=== PATIENT | female | born 1995 | race Caucasian/White ===

== ENCOUNTER 2016-12-04 21:26 | Emergency (ER) | payer OTHER ==
[2016-12-04 22:33] LABS: BILIRUBIN,URINE NEGATIVE (NEGATIVE)
[2016-12-04 22:35] LABS: UA CHARGE (STRIP ONLY) YES; UR CULTURE IF IND NOT INDICATED
--- NOTE | 2016-12-04 22:56 | ED Physician Documentation ---
PD HPI FEMALE - Stated complaint Stated Complaint: 14 WEEKS/SPOTTING - Chief complaint Chief Complaint: Abd Pain - History obtained from History obtained from: Patient - History of Present Illness Timing - onset: How many days ago (6) Timing - duration: Days (6) Timing - details: Still present Associated symptoms: Vaginal bleeding, Dysuria, Urinary frequency. No: Fever, Vaginal discharge Contributing factors: (14 weeks ) OB-LABOR ECONOMIST History: G (3), P (1), Miscarriage(s) (1), Prior vag delivery (1) Similar symptoms before: Diagnosis (similar symptoms with previous UTIs) Recently seen: Not recently seen - Additional information Additional information: patient is 14 weeks , moved to [facility] yesterday and thus does not have any local primary care physicians. She has had three ultrasound studies in this already (prior to moving here), and patient says these showed normal intrauterine . C/O 6 days of urinary frequency, burning with urination, and sensation of incomplete voiding. Also c/o small amt. vag. bleeding x 1-2 days Review of Systems Constitutional: denies: Fever, Chills, Sweats GI: denies: Abdominal Pain, Nausea, Vomiting : reports: Dysuria, Frequency, Now EGA PD PAST MEDICAL HISTORY - Past Medical History Past Medical History: No - Past Surgical History Past Surgical History: Yes General: Appendectomy Ortho: Other - Present Medications Home Medications: Ambulatory Orders Medication Instructions Recorded Confirmed Nitrofurantoin [Macrobid] 100 mg PO BID #9 capsule 12/04/16 - Allergies Allergies/Adverse Reactions: Allergies Allergy/AdvReac Type Severity Reaction Status Date / Time metoclopramide HCl * Allergy Unknown Verified 12/04/16 23:27 [From Reglan] - Social History Does the pt smoke?: No Smoking Status: Never smoker Does the pt drink ETOH?: No Does the pt have substance abuse?: No - Immunizations Immunizations are current?: Yes - POLST Patient has POLST: No PD ED PE NORMAL - Vitals Vital signs reviewed: Yes - General General: Alert and oriented X 3, No acute distress, Well developed/nourished - Cardiac Cardiac: RRR, No murmur - Respiratory Respiratory: No respiratory distress, Clear bilaterally - Abdomen Abdomen: Soft, Non tender - Back Back: No CVA TTP Results - Vitals Vitals: Vital Signs - 24 hr 12/04/16 12/04/16 12/04/16 21:37 23:25 23:43 Temperature 36.3 C L 36.2 C L Heart Rate 83 60 60 Respiratory 17 18 17 Rate Blood Pressure 119/68 100/53 L 109/48 L O2 Saturation 100 99 99 Oxygen O2 Source Room air - Labs Labs: Laboratory Tests 12/04/16 22:00 Urine Color YELLOW Urine Clarity CLEAR Urine pH 7.0 Ur Specific Carman 1.015 Urine Protein NEGATIVE Urine Glucose (UA) NEGATIVE Urine Ketones NEGATIVE Urine Occult Blood NEGATIVE Urine Nitrite NEGATIVE Urine Bilirubin NEGATIVE Urine Urobilinogen 0.2 (NORMAL) Ur Leukocyte Esterase NEGATIVE Ur Microscopic Review NOT INDICATED Urine Culture Comments NOT INDICATED PD MEDICAL DECISION MAKING - ED course Complexity details: reviewed results, considered differential, d/w patient Departure - Departure Disposition: 01 Home, Self Care Clinical Impression: Urinary tract infection Condition: Good Instructions: ED UTI Cystitis Female Follow-Up: Ab Barnhart MD [Provider Admit Priv/Credential] - (3-5 days) Prescriptions: Nitrofurantoin [Macrobid] 100 mg PO BID #9 capsule Discharge Date/Time: 12/04/16 23:55
[2016-12-04] MEDS ORDERED: NITROFURANTOIN MACRO 100 MG CAPSULE PO STA (23:12)
[2016-12-04] MEDS ORDERED: ACETAMINOPHEN 325 MG TABLET PO STA (23:13)
[2016-12-04] MEDS ORDERED: ACETAMINOPHEN 325 MG TABLET PO ONE (23:40)
[2016-12-04] MEDS ORDERED: NITROFURANTOIN MACRO 100 MG CAPSULE PO ONE (23:40)
[2016-12-04 23:44] VITALS: BP 109/48
== END 2016-12-04 23:55 | disposition home or self-care (01) ==
LOC: ED 21:26
DX: O23.41 Unspecified infection of urinary tract in pregnancy, first trimester (principal); Z3A.14 14 weeks gestation of pregnancy
CPT/HCPCS: 81003; 99283; A9270; 81001; 87086

== ENCOUNTER 2017-01-04 06:36 | Outpatient (CLI) | payer OTHER | END 2017-01-04 06:37 | disposition home or self-care (01) | LOC: LAB.R 06:36 | PROVIDERS: ATTEND Obstetrics & Gynecology | DX: N89.8 Other specified noninflammatory disorders of vagina (principal) | CPT/HCPCS: 87480; 87510; 87660 ==

== ENCOUNTER 2017-02-01 12:10 | Outpatient (CLI) | payer BC ==
[2017-02-01 12:24] VITALS: BP 117/63
== END 2017-02-01 13:13 | disposition home or self-care (01) ==
LOC: WFO 12:10 → OB 12:19 → WFO 13:13
PROVIDERS: ATTEND Obstetrics & Gynecology
DX: O36.8120 Decreased fetal movements, second trimester, not applicable or unspecified (principal); Z3A.22 22 weeks gestation of pregnancy
CPT/HCPCS: 99211

== ENCOUNTER 2017-02-11 13:04 | Outpatient (CLI) | payer BC ==
[2017-02-11 14:19] LABS: BASOPHILS % (AUTO) 0.3 %; EOSINOPHILS # (AUTO) 0.1 10^3/uL (0.0-0.7); EOSINOPHILS % (AUTO) 0.9 %; HCT - HEMATOCRIT 35.3 % (37.0-47.0); LYMPHOCYTES # (AUTO) 1.8 10^3/uL (1.5-3.5); LYMPHOCYTES % (AUTO) 15.9 %; MEAN CORPUSCULAR HEMOGLOBIN 30.9 pg (27.0-31.0); MEAN CORPUSCULAR HGB CONC 34.1 g/dL (32.0-36.0); MEAN CORPUSCULAR VOLUME 90.7 fL (81.0-99.0); MEAN PLATELET VOLUME 7.8 fL (7.9-10.8); MONOCYTES # (AUTO) 0.8 10^3/uL (0.0-1.0); MONOCYTES % (AUTO) 6.9 %; NEUTROPHILS # (AUTO) 8.5 10^3/uL (1.5-6.6); RED BLOOD COUNT 3.89 10^6/uL (4.20-5.40); RED CELL DISTRIBUTION WIDTH 13.8 % (12.0-15.0); UNCORRECTED WHITE BLOOD COUNT 11.2 x10^3/uL; WHITE BLOOD COUNT 11.2 x10^3/uL (4.8-10.8)
[2017-02-11 14:53] LABS: BILIRUBIN,URINE NEGATIVE (NEGATIVE)
[2017-02-11 14:54] LABS: UA CHARGE (STRIP ONLY) YES; UR CULTURE IF IND NOT INDICATED
--- NOTE | 2017-02-11 17:36 | Ultrasound Preliminary Report ---
Exam: US OB Limited Impression: 1. Posterior placenta without gross prevertebral. 2. Normal closed cervix. 3. Single intrauterine in a breech position. No gross anatomic abnormality. heart rat e 142 bpm. Synechia noted in the right upper quadrant. Final interpretation by on-site radiologist in the morning. SITE ID: [id number]
[2017-02-11 19:21] VITALS: BP 127/65
--- NOTE | 2017-02-12 13:01 | Ultrasound Report ---
EXAM: THIRD TRIMESTER OBSTETRIC ULTRASOUND EXAM DATE: 02/11/2017 04:19 p.m. CLINICAL HISTORY: Assessment of status. LMP 08/28/2016. COMPARISON: None. TECHNIQUE: Real-time scanning performed with static images. Both color-flow and Doppler technology we re utilized. FINDINGS: Fetus: Single live intrauterine gestation. Presentation: Breech Heart Rate: 148 beats per minute. Placenta: Posterior fundal position. No placenta previa or abruption. Amniotic Fluid Index (FREDDY): 15 cm (normal 8-25). Biometry: Bi-parietal diameter (BPD): 5.7 cm = 23 weeks 3 days. Head circumference (HC): 21.7 cm = 23 weeks 6 days. Abdominal circumference (AC): 18.5 cm = 23 weeks 3 days. Femur length (FL): 4.1 cm = 23 weeks 3 days. Dates: Composite gestational age (this exam): 23 weeks 5 days (EDC 06/05/2017). Gestational age (based on LMP): 23 weeks 6 days (EDC 06/04/2017). Estimated weight: 595 gm, 37 percentile. Anatomic Survey: A complete survey was not performed on this exam. Anatomic evaluation was limited secondary to the age, but demonstrates no definite abnormalities. Maternal Structures: Cervix: Long and closed measuring 4.6 cm. Uterus/adnexa: Unremarkable. Kidneys: No hydronephrosis. Free fluid: None. Other: Please also note that there is an amniotic band in the fundus, fetus is separate. IMPRESSION: 1. Single live intrauterine gestation with normal interval growth concordant with the established EDC of 06/04/2017. 2. Normal FREDDY, umbilical Doppler and placenta. Please also note there is a small thin amnionic band i n the fundus, fetus is separate. [facility] Referring Provider Line: [phone] SITE ID: [id number]
== END 2017-02-11 19:15 | disposition home or self-care (01) ==
LOC: FBP 13:04 → WFO 13:04
PROVIDERS: ATTEND Obstetrics & Gynecology
DX: O47.02 False labor before 37 completed weeks of gestation, second trimester (principal); Z3A.23 23 weeks gestation of pregnancy
CPT/HCPCS: 36415; 76815; 80306; 81001; 81003; 85025; 86762; 86780; 86900; 86901; 87086; 87340; 87389; 87491; 87591; 99214

== ENCOUNTER 2017-02-14 11:54 | Outpatient (CLI) | payer BC ==
[2017-02-14 12:16] VITALS: BP 119/63
== END 2017-02-14 12:53 | disposition home or self-care (01) ==
LOC: WFO 11:54 → FBP 11:55 → WFO 12:53
PROVIDERS: ATTEND Obstetrics & Gynecology
DX: O26.892 Other specified pregnancy related conditions, second trimester (principal); M79.1 Myalgia; Z3A.24 24 weeks gestation of pregnancy
CPT/HCPCS: 82731; 99213

== ENCOUNTER 2017-02-14 11:58 | Outpatient (CLI) | payer BC | END 2017-02-14 11:59 | disposition home or self-care (01) | LOC: LAB.R 11:58 | PROVIDERS: ATTEND Obstetrics & Gynecology | DX: Z36 Encounter for antenatal screening of mother (principal) | CPT/HCPCS: 82731 ==

== ENCOUNTER 2017-02-19 07:32 | Outpatient (CLI) | payer BC ==
--- NOTE | 2017-02-19 10:03 | Ultrasound Report ---
OB ULTRASOUND: 02/19/2017 CLINICAL INDICATION: anatomy. TECHNIQUE: Real-time scanning was performed with hotel services sales representative static images obtained. LAST MENSTRUAL PERIOD 08/29/2016 Clinical Age 24 weeks 6 days US Age 24 weeks 4 days EFW Hadlock 690 g EFW% Hadlock 22% Heart Rate 140 bpm EDC 06/05/2017 US EDC 06/07/2017 BPD Hadlock 24 weeks 5 days; Mean mm 60.8 HC Hadlock 25 weeks 1 day; Mean mm 230.8 AC Hadlock 24 weeks 2 days; Mean mm 196.0 FL Hadlock 24 weeks 2 days; Mean mm 43.5 Presentation cephalic Placental Location posterior Cervical Length 3.7 cm Amniotic Fluid 13.1 cm FINDINGS: There is a single viable intrauterine gestation, in cephalic presentation. heart rate is 140 BPM. The placenta is posterior, without evidence of previa. Amniotic fluid volume is normal, with an FREDDY of 13.1. By size, the fetus measures 24.6 weeks (25.1 weeks by LMP). The following anatomic structures were visualized and appear normal: The intracranial contents, including the ventricles and posterior fossa; the lips and orbits; the spine; the heart, including 4 chamber view and outflow tracts, and diaphragm; the abdominal contents, including the stomach, the bilateral kidneys, and urinary bladder, as well as a normal 3 vessel cord insertion; 4 limbs. Incidental note is again made of a small amniotic band in the fundal portion of the gestational sac. No free fluid or adnexal lesion is seen. IMPRESSION: SINGLE VIABLE INTRAUTERINE GESTATION, WITH SIZE IN KEEPING WITH LMP DATING. NORMAL ANATOMIC SURVEY. SMALL FUNDAL AMNIOTIC BAND, UNCHANGED. MTDD
== END 2017-02-19 07:33 | disposition home or self-care (01) ==
LOC: DI 07:32
PROVIDERS: ATTEND Obstetrics & Gynecology
DX: Z34.82 Encounter for supervision of other normal pregnancy, second trimester (principal)
CPT/HCPCS: 76811

== ENCOUNTER 2017-02-26 14:21 | Outpatient (CLI) | payer BC ==
[2017-02-26 15:02] VITALS: BP 116/65
[2017-02-26 15:42] LABS: BILIRUBIN,URINE NEGATIVE (NEGATIVE)
[2017-02-26 15:51] LABS: UR CULTURE IF IND NOT INDICATED
== END 2017-02-26 17:40 | disposition home or self-care (01) ==
LOC: WFO 14:21 → FBP 14:22 → WFO 17:40
PROVIDERS: ATTEND Obstetrics & Gynecology
DX: Z34.82 Encounter for supervision of other normal pregnancy, second trimester (principal)
CPT/HCPCS: 81001; 82731; 87086; 99213

== ENCOUNTER 2017-03-04 12:46 | Outpatient (CLI) | payer BC ==
[2017-03-04] MEDS ORDERED: TERBUTALINE 1 MG/ML VIAL SUBQ ONE ×2 (13:06→13:07)
[2017-03-04] MEDS ORDERED: NIFEdipine ER 30 MG TABLET PO SCH (14:00)
[2017-03-04 15:36] VITALS: BP 112/66
== END 2017-03-04 15:45 | disposition home or self-care (01) ==
LOC: WFO 12:46 → FBP 12:47 → WFO 15:45
PROVIDERS: ATTEND Obstetrics & Gynecology
DX: O47.02 False labor before 37 completed weeks of gestation, second trimester (principal); Z3A.26 26 weeks gestation of pregnancy
CPT/HCPCS: 96372; 99213; A9270

== ENCOUNTER 2017-03-10 18:23 | Outpatient (CLI) | payer BC ==
[2017-03-10 19:20] LABS: BILIRUBIN,URINE NEGATIVE (NEGATIVE)
[2017-03-10] MEDS ORDERED: TERBUTALINE 1 MG/ML VIAL SUBQ ONE (19:20)
[2017-03-10 19:31] LABS: UR CULTURE IF IND NOT INDICATED; WBC,URINE 0-3 /HPF (0-5)
[2017-03-10] MEDS ORDERED: TERBUTALINE 1 MG/ML VIAL SUBQ SCH (20:00)
[2017-03-10] MEDS ORDERED: NIFEdipine ER 30 MG TABLET PO SCH (20:05)
[2017-03-10 20:47] VITALS: BP 132/75
== END 2017-03-10 21:04 | disposition home or self-care (01) ==
LOC: WFO 18:23 → FBP 18:25 → WFO 21:04
PROVIDERS: ATTEND Obstetrics & Gynecology
DX: O99.89 Other specified diseases and conditions complicating pregnancy, childbirth and the puerperium (principal); R10.9 Unspecified abdominal pain; Z3A.26 26 weeks gestation of pregnancy
CPT/HCPCS: 80306; 81001; 82731; 96372; 99213; A9270; 87086

== ENCOUNTER 2017-03-12 10:34 | Outpatient (CLI) | payer BC | END 2017-03-12 10:35 | disposition home or self-care (01) | LOC: LAB 10:34 | PROVIDERS: ATTEND Obstetrics & Gynecology | DX: Z36 Encounter for antenatal screening of mother (principal) | CPT/HCPCS: 36415; 82950 ==

== ENCOUNTER 2017-03-26 08:00 | Outpatient (CLI) | payer BC | END 2017-03-26 08:01 | disposition home or self-care (01) | LOC: LAB.R 08:00 | PROVIDERS: ATTEND Obstetrics & Gynecology | DX: O60.00 Preterm labor without delivery, unspecified trimester (principal) | CPT/HCPCS: 82731 ==

== ENCOUNTER 2017-04-03 20:30 | Outpatient (CLI) | payer BC ==
[2017-04-03] MEDS ORDERED: NIFEdipine 10 MG CAPSULE PO SCH (21:53)
[2017-04-03 22:05] LABS: BILIRUBIN,URINE NEGATIVE (NEGATIVE)
[2017-04-03 22:09] LABS: UA CHARGE (STRIP ONLY) YES; UR CULTURE IF IND NOT INDICATED
[2017-04-03] MEDS ORDERED: NIFEdipine 10 MG CAPSULE PO ONE (22:39)
[2017-04-03 23:04] VITALS: BP 132/63
== END 2017-04-03 23:00 | disposition home or self-care (01) ==
LOC: WFO 20:30 → FBP 20:32 → WFO 23:00
PROVIDERS: ATTEND Obstetrics & Gynecology
DX: O60.03 Preterm labor without delivery, third trimester (principal); Z3A.30 30 weeks gestation of pregnancy
CPT/HCPCS: 81003; 82731; 87081; 87797; 99214; A9270; 81001; 87086

== ENCOUNTER 2017-04-07 18:57 | Observation (INO) | payer BC ==
[2017-04-07] MEDS ORDERED: LACTATED RINGERS 1,000 ML IV ONE ×2 (19:40→19:49)
[2017-04-07] MEDS ORDERED: TERBUTALINE 1 MG/ML VIAL SUBQ ONE ×2 (19:42→19:48)
[2017-04-07] MEDS ORDERED: BETAMETHASONE 30 MG/5 ML VIAL IM SCH (20:20)
[2017-04-07] MEDS ORDERED: LACTATED RINGERS 1,000 ML IV SCH ×2 (20:27→21:30)
[2017-04-07] MEDS ORDERED: TERBUTALINE 1 MG/ML VIAL SUBQ SCH (20:29)
[2017-04-07] MEDS ORDERED: NIFEdipine 10 MG CAPSULE PO PRN (21:31)
[2017-04-07 21:52] VITALS: BP 113/59
[2017-04-07 21:52] LABS: HCT - HEMATOCRIT 33.4 % (37.0-47.0); HGB - HEMOGLOBIN 11.3 g/dL (12.0-16.0); MEAN CORPUSCULAR HEMOGLOBIN 30.2 pg (27.0-31.0); MEAN CORPUSCULAR HGB CONC 33.9 g/dL (32.0-36.0); MEAN CORPUSCULAR VOLUME 89.1 fL (81.0-99.0); MEAN PLATELET VOLUME 8.3 fL (7.9-10.8); RED BLOOD COUNT 3.75 10^6/uL (4.20-5.40); RED CELL DISTRIBUTION WIDTH 13.5 % (12.0-15.0); WHITE BLOOD COUNT 10.8 x10^3/uL (4.8-10.8)
[2017-04-07 22:04] LABS: ALBUMIN/GLOBULIN RATIO 0.8 (1.0-2.2); BILIRUBIN,TOTAL 0.4 mg/dL (0.2-1.0); CALCIUM 8.9 mg/dL (8.5-10.3); CREATININE 0.4 mg/dL (0.4-1.0); POTASSIUM 3.8 mmol/L (3.5-5.0); TOTAL PROTEIN 6.8 g/dL (6.7-8.2)
[2017-04-07] MEDS ORDERED: MORPHINE 10 MG/ML VIAL IM STA (22:39)
[2017-04-07 22:48] LABS: BILIRUBIN,URINE NEGATIVE (NEGATIVE)
[2017-04-07 23:07] LABS: WBC,URINE 0-3 /HPF (0-5)
[2017-04-07 23:08] LABS: UR CULTURE IF IND NOT INDICATED
[2017-04-07] MEDS ORDERED: PROMETHAZINE 25 MG/1 ML VIAL IM SCH (23:45)
--- NOTE | 2017-04-08 00:03 | Ultrasound Preliminary Report ---
Exam: US OB Transvaginal IMPRESSION: 1. Cervical length 3.1 cm on endovaginal images. [facility] SITE ID: [id number]
--- NOTE | 2017-04-08 00:06 | Ultrasound Report ---
EXAM: US OB TRANSVAGINAL EXAM DATE: 04/07/2017 11:43 PM. CLINICAL HISTORY: Follow-up for cervical length. COMPARISON: 04/07/2017, 2033 hrs.. TECHNIQUE: Real time scanning with static images obtained. Transvaginal exam was performed. FINDINGS: Cervix appears long and closed on endovaginal images, measuring 3.1 cm. See earlier US OB limited for additional findings. IMPRESSION: 1. Cervical length 3.1 cm on endovaginal images. [facility] Referring Provider Line: [phone] SITE ID: [id number]
[2017-04-08] MEDS ORDERED: PROMETHAZINE 25 MG/1 ML VIAL ONE (00:29)
--- NOTE | 2017-04-08 00:52 | Ultrasound Preliminary Report ---
Exam: US OB Limited IMPRESSION: 1. Carbone live intrauterine with gestational age 30 weeks 5 days based on LMP. 2. Estimated weight is within expected limits for assigned dating. 3. Cervix not well seen on transabdominal images. [facility] SITE ID: [id number]
--- NOTE | 2017-04-08 00:55 | Ultrasound Report ---
EXAM: LIMITED OBSTETRICAL ULTRASOUND EXAM DATE: 04/07/2017 09:15 PM. CLINICAL HISTORY: contractions. COMPARISON: None. TECHNIQUE: Real-time sonographic evaluation of the fetus performed by the baggage porter head. Multiple repre sentative static images were saved for review. DATING: Established EGA 30 weeks 5 days with RUPERT 06/11/2017 based on LMP. GENERAL EVALUATION Carbone . Cardiac activity: 146 bpm. movement: Visualized. Presentation: Cephalic. Placenta: Posterior left lateral position. No evidence for previa. Amniotic fluid: Subjectively normal. MVP 5.2 cm. BIOMETRY Bi-Parietal Diameter (BPD): 8.0 cm, 32 weeks 2 days Head Circumference (HC): 27.9 cm, 30 weeks 4 days Abdominal Circumference (AC): 26.1 cm, 30 weeks 1 day Femur Length (FL): 5.6 cm, 29 weeks 2 days Estimated Weight: 1507 gm, 38.8 percentile. MATERNAL STRUCTURES Cervix: Not well seen due to head position. IMPRESSION: 1. Carbone live intrauterine with gestational age 30 weeks 5 days based on LMP. 2. Estimated weight is within expected limits for assigned dating. 3. Cervix not well seen on transabdominal images. [facility] Referring Provider Line: [phone] SITE ID: [id number]
--- NOTE | 2017-04-08 02:05 | HISTORY & PHYSICAL EXAMINATION ---
DATE OF ADMISSION: 04/07/2017 DIAGNOSES: 1. contractions. 2. Thirty weeks and 6 days gestation by early ultrasound. 3. Procardia labor prophylaxis. 4. Vaginal discharge. The patient is a 21-year-old 3, para P1-0-1-1 woman at 30 weeks 6 days gestation who has had multiple visits to labor and delivery to rule out labor due to frequent flurries of contractions. She has had serial fibronectin tests, which have all been negative except for her sample was positive. She reports contractions on and off for the last 7 weeks. Over the last 12 hours, she notes that they have become more frequent and stronger. She is taking her nifedipine 10 mg every 6 hours as instructed and pushing fluids. She reports no dysuria, frequency, urgency or hematuria. She states that her pelvis feels different. She denies josefa pressure or grossly ruptured membranes. She reports several days of a yellowish white, creamy discharge. At one time this discharge was more watery. She has no fevers or chills and is not sexually active. Most recently recorded vaginal exam did not have dilation but found the head high and 20% effaced. Today's cervical exam is 1 cm and 30-40% effaced with soft consistency anterior and -2. Reviewing ultrasound data, initial ultrasound at 23.7 weeks found the cervical length to be 4.66. Repeat studying on 2016 (24.9 weeks) found the cervix to be 3.7 cm. OBSTETRICAL HISTORY: Most recently the patient had a spontaneous and immediately became again. Her working EDC is 11 June based on ultrasound. [facility]. BASELINE LABORATORY DATA TESTING: Hemoglobin 12.0, white count 11.2, platelets 260, rubella immune, B positive, antibody screen negative, urine culture negative, RPR negative, GC and chlamydia negative, hepatitis B surface antibody negative. HIV negative. Pap smear: ASCUS with negative high risk HPV. Initial anomaly scan showed a possibility of amniotic band; however, MFM reevaluation found no band. PAST MEDICAL HISTORY: The patient denies chronic disease history. PAST SURGICAL HISTORY: Left ACL repair. ALLERGIES: ERYTHROMYCIN, RASH AND BLISTERS. MEDICATIONS: vitamins, Procardia 10 mg every 6 hours - last dose at 5 p.m. SOCIAL HISTORY: Denies drug, tobacco or alcohol use. REVIEW OF SYSTEMS: CONSTITUTIONAL: Negative. HEENT: Negative. LUNGS: Negative. CARDIOVASCULAR: Negative. GASTROINTESTINAL: Negative other than heartburn which she takes ranitidine for. GENITOURINARY: Negative, Reference HPI. MUSCULOSKELETAL: The patient states left knee is not as functional as it could be. NEUROLOGIC: The patient reports occasional mild headache. SKIN: Negative. LYMPHATIC: Negative. PHYSICAL EXAMINATION: GENERAL: Laying quietly on the stretcher with mother in attendance. Afebrile, normotensive. HEENT: Supple neck. No thyromegaly. EOMI. No icterus. Dentition repaired. Somewhat dry mucous membranes. LUNGS: Clear to auscultation. CARDIAC: Regular, no murmur, no gallop. ABDOMEN: Nondistended. No abdominal organomegaly. No tenderness. No flank tenderness. No bladder tenderness. Uterus appropriate size for 31 weeks, normal resting tone, occasional mild to moderate contraction. heart monitor baseline stable 125/130, moderate variability, accels no decels. Tocodynamometer finds contractions every 5-6 minutes. EXTERNAL GENITALIA: No lesions. VAGINA: Speculum exam, no blood. Creamy yellowish discharge, fern negative, GC, chlamydia, GBS and a fern sent. CERVIX: Consistency soft, approximately 1 cm dilation, 30% to at most 40% effaced, anterior; no leakage of fluid on cough or strain. EXTREMITIES: Arthroscopic surgery scars left knee. No edema. Moves all 4 extremities well. NEUROLOGICAL: Cranial nerves grossly intact, sensory and motor function grossly intact. PSYCHOLOGIC: Anxiety. Effect somewhat flat at times. LABS: CBC pending. Comprehensive metabolic panel and UA pending. Ultrasound, present for exam, parisi vertex fetus with adequate amniotic fluid. weight 1500 grams consistent with 38%. Multiple measurements made of the cervix and length at 2.4-2.6 cm. ASSESSMENT: The patient is a 30 week 6 day gestation who has been plagued with multiple bouts of contractions without evidence of labor. Cervical change has not been established. The shortening of the US cervical length after 28 weeks is normal. Cervical length being under 2.5 is irrelevant in terms of progesterone prophylaxis because our measurements today are outside the 20-24w detection envelope. Cervical lengths between 30 mm and 20 mm at 31w gestational age are indeterminate. If the cervical length was under 20 mm we would take a very aggressive approach. Regardless, we will manage her contractions with caution. PLAN: 1. Betamethasone 25 mg in divided doses over 24 hours. 2. Rest. 3. Continue IV hydration. 4. Procardia 10 mg every 6 hours. 5. The patient has already been given 1 injection of terbutaline 0.25 subcutaneously. Await laboratory data. 6. Maintain close observation for evidence of significant contractions and possible cervical change. ADDENDUM: Radiologist requested TUS cervical measurement and the repeat length was in excess of 30 mm. Therefore delivery is unlikely and patient given reassurance. Patient desired discharge to rest at home. PTL precautions reviewed and she was discharged. FU on Saturday for 2nd Betamethasone. JOB #: [id number] EXT JOB #:[id number] MTDJayme
[2017-04-08] MEDS ORDERED: BETAMETHASONE 30 MG/5 ML VIAL IM SCH (20:21)
== END 2017-04-08 00:36 | disposition home or self-care (01) ==
LOC: WFO 18:57 → FBP 18:59 → WFO 22:00 → FBP 22:01
PROVIDERS: ADMIT Obstetrics & Gynecology; ATTEND Obstetrics & Gynecology
DX: O47.03 False labor before 37 completed weeks of gestation, third trimester (principal); Z3A.30 30 weeks gestation of pregnancy; O99.89 Other specified diseases and conditions complicating pregnancy, childbirth and the puerperium; N89.8 Other specified noninflammatory disorders of vagina
CPT/HCPCS: 76815; 76817; 80053; 81001; 85027; 87081; 87480; 87491; 87510; 87591; 87660; 96360; 96361; 96372; 99214; 99218; A9270; J7120; 76816; 87086

== ENCOUNTER 2017-04-08 19:54 | Outpatient (CLI) | payer BC ==
[2017-04-08] MEDS ORDERED: BETAMETHASONE 30 MG/5 ML VIAL IM SCH (20:15)
== END 2017-04-08 20:28 | disposition home or self-care (01) ==
LOC: WFO 19:54 → FBP 20:07 → WFO 20:28
PROVIDERS: ATTEND Obstetrics & Gynecology
DX: O47.03 False labor before 37 completed weeks of gestation, third trimester (principal); Z3A.30 30 weeks gestation of pregnancy
CPT/HCPCS: 96372

== ENCOUNTER 2017-04-09 23:15 | Observation (INO) | payer BC ==
[2017-04-10] MEDS ORDERED: MAGNESIUM SULFATE 2 GRAM 100 ML IV ONE (00:06)
[2017-04-10] MEDS ORDERED: SODIUM CHLORIDE FLUSH 0.9% 10 ML SYRINGE IVP ONE (00:06)
[2017-04-10] MEDS ORDERED: LACTATED RINGERS 1,000 ML IV ONE (00:06)
[2017-04-10] MEDS ORDERED: MAGNESIUM SULFATE 2 GRAM 50 ML IV SCH (01:05)
[2017-04-10] MEDS ORDERED: MAGNESIUM SULFATE 40 GM in LACTATED RINGERS 420 ML IV SCH ×2 (01:05→10:57)
[2017-04-10] MEDS ORDERED: LACTATED RINGERS 500 ML IV ONE (01:22)
[2017-04-10] MEDS ORDERED: CALCIUM GLUCONATE 1000 MG/10 ML VIAL ONE (01:23)
[2017-04-10] MEDS ORDERED: ONDANSETRON 4 MG/2 ML VIAL ONE (01:28)
[2017-04-10 01:29] LABS: BASOPHILS % (AUTO) 0.1 %; EOSINOPHILS % (AUTO) 0.1 %; HGB - HEMOGLOBIN 10.6 g/dL (12.0-16.0); LYMPHOCYTES # (AUTO) 1.8 10^3/uL (1.5-3.5); LYMPHOCYTES % (AUTO) 15.2 %; MEAN CORPUSCULAR HGB CONC 35.1 g/dL (32.0-36.0); MEAN CORPUSCULAR VOLUME 88.3 fL (81.0-99.0); MEAN PLATELET VOLUME 8.1 fL (7.9-10.8); MONOCYTES % (AUTO) 8.6 %; NEUTROPHILS # (AUTO) 8.8 10^3/uL (1.5-6.6); RED CELL DISTRIBUTION WIDTH 13.4 % (12.0-15.0); UNCORRECTED WHITE BLOOD COUNT 11.6 x10^3/uL; WHITE BLOOD COUNT 11.6 x10^3/uL (4.8-10.8)
[2017-04-10] MEDS ORDERED: ONDANSETRON 4 MG/2 ML VIAL IVP PRN (01:32)
--- NOTE | 2017-04-10 01:49 | PREOP HISTORY & PHYSICAL ---
DATE OF ADMISSION/SURGERY: 04/10/2017 IDENTIFICATION: A 21-year-old, G3, P1, AB1 female whose EDC was 11 June. This makes her 31.1 weeks. This has been very difficult to get her records from [place], [place] where she had her early OB care. CHIEF COMPLAINT: Cramping and vaginal pain. HISTORY OF PRESENT ILLNESS: The patient had been having difficulty with cramping and vaginal pain for the last 7 weeks. She has had 13 visits to Labor and Delivery because of this. She received steroids Saturday and Saturday. She has been on Procardia 60 mg SR and changed to 10 mg p.o. q.4h. Last Saturday, she had a positive FFN. This p.m. this evening at roughly 1600 she developed painful contractions. She also complains of vaginal discomfort. She states she took her Procardia. She also tried hydration as well as trying to get comfortable. She denies any spontaneous rupture of membranes. She notes adequate motion. She has previously had a delivery at 39 weeks, but only had 2 episodes contractions. She is GBS positive on culture. PAST MEDICAL HISTORY: The patient denies any hypertensive, diabetic, cardiac, or pulmonary disease. SURGICAL HISTORY: Positive for an appendectomy as well as right knee reconstructive surgery. ALLERGIES: REGLAN. CURRENT MEDICATIONS: She is taking vitamins. She is also taking Procardia 10 mg p.o. q.4h with the last being at 2100. HABITS: The patient denies use of alcohol, tobacco, or street or addictive drugs. SOCIAL HISTORY: The patient is , lives with her spouse as well as her parents and child. PHYSICAL EXAMINATION: The patient is an anxious, a little well-developed female. VITAL SIGNS: Temperature is 97.6, blood pressure 115/68. HEENT: Pupils are equal, round. Extraocular muscles intact. HEART: Regular rate and rhythm without murmurs. LUNGS: Paulson clear without rales or wheezes. ABDOMEN: Gravid, roughly 32 cm fundal height. The cervical examination by the nurse showed her to be 40% fingertip and -2. The transvaginal ultrasound showed her cervix to be 3-3.9 cm in length, vertex presentation without evidence of any funneling. IMPRESSION: A 21-year-old 3, para 1, AB 1 female at 31.1 weeks, contractions. Cervix is long at this time. She also has a positive GBS. PLAN: We will administer magnesium ferrous sulfate 4 gram load with 2 grams an hour. Her steroids have all been administered. We will obtain a CBC, UA and u- tox as well as a CMP. JOB #: [id number] EXT JOB #:[id number] [facility] HOSPITALJayme
[2017-04-10 01:56] LABS: ALBUMIN/GLOBULIN RATIO 0.8 (1.0-2.2); BILIRUBIN,TOTAL 0.8 mg/dL (0.2-1.0); CALCIUM 9.1 mg/dL (8.5-10.3); CREATININE 0.3 mg/dL (0.4-1.0); TOTAL PROTEIN 6.7 g/dL (6.7-8.2)
[2017-04-10] MEDS ORDERED: LACTATED RINGERS 1,000 ML IV SCH (02:00)
--- NOTE | 2017-04-10 02:29 | Ultrasound Preliminary Report ---
Exam: US OB Transvaginal IMPRESSION: 1. Cervical length measures 3 cm on transvaginal exam. [facility] SITE ID: [id number]
--- NOTE | 2017-04-10 02:32 | Ultrasound Report ---
EXAM: US OB LIMITED EXAM DATE: 04/07/2017 11:43 PM. CLINICAL HISTORY: Cervical length. COMPARISON: 04/07/2017. TECHNIQUE: Transvaginal exam was performed with static image documentation. FINDINGS: Cervix appears long and closed, measuring 3 cm. Trace fluid is seen in the endocervical canal. IMPRESSION: 1. Cervical length measures 3 cm on transvaginal exam. [facility] Referring Provider Line: [phone] SITE ID: [id number]
[2017-04-10 02:54] LABS: BILIRUBIN,URINE NEGATIVE (NEGATIVE); PH,URINE 6.5 PH (5.0-7.5)
[2017-04-10 02:55] LABS: UR CULTURE IF IND NOT INDICATED; WBC,URINE 0-3 /HPF (0-5)
--- NOTE | 2017-04-10 07:48 | PROVIDER PROGRESS NOTE ---
Labor Progress Note - Uterine Monitoring Uterine Monitoring Mode: positive: External toco Contraction Frequency (min/apart): absent Uterine Resting Tone: positive: Soft - Monitoring Monitor Mode: positive: External ultrasound Heart Rate Baseline: 130 Heart Rate Variability: positive: Moderate (6-25 bmp) Accelerations: positive: Present, 15x15 Decelerations: positive: None Strip Review: positive: Category I - Vaginal Exam Dilation (in cm): closed internal oss Effacement (%): 20 Station: Ballotable Cervical Position: Midposition - Labor Progress Note Labor Progress Note/Additional Text: Contractions have completely resolved. The contractions when seen were square as compared to the usual rounded form. They completely resolve with sleep. It is difficult to tell if this secondary to the Magnesium or psycogenic. I have discussed this with the patient and her mother. I have engaged customer services manager to help.
[2017-04-10 12:55] VITALS: BP 107/51
[2017-04-10] MEDS ORDERED: NIFEdipine 10 MG CAPSULE PO PRN (13:05)
== END 2017-04-10 13:52 | disposition home or self-care (01) ==
LOC: WFO 23:15 → FBP 23:17 → WFO 04-10 00:24 → FBP 04-10 00:25
PROVIDERS: ADMIT Obstetrics & Gynecology; ATTEND Obstetrics & Gynecology
DX: O47.03 False labor before 37 completed weeks of gestation, third trimester (principal); O99.820 Streptococcus B carrier state complicating pregnancy; Z3A.31 31 weeks gestation of pregnancy
CPT/HCPCS: 76817; 80053; 80306; 81001; 85025; 96365; 96366; 96375; 99214; 99218; A9270; J7120; 87086

== ENCOUNTER 2017-04-16 08:00 | Outpatient (CLI) | payer BC | END 2017-04-16 08:01 | disposition home or self-care (01) | LOC: LAB.R 08:00 | PROVIDERS: ATTEND Obstetrics & Gynecology | DX: Z36 Encounter for antenatal screening of mother (principal) | CPT/HCPCS: 80306 ==

== ENCOUNTER 2017-04-16 10:32 | Outpatient (CLI) | payer BC ==
[2017-04-16 10:49] VITALS: BP 126/70
== END 2017-04-16 12:00 | disposition home or self-care (01) ==
LOC: WFO 10:32 → FBP 10:34 → WFO 12:00
PROVIDERS: ATTEND Obstetrics & Gynecology
DX: Z36 Encounter for antenatal screening of mother (principal); O36.8130 Decreased fetal movements, third trimester, not applicable or unspecified; Z3A.32 32 weeks gestation of pregnancy
CPT/HCPCS: 59025; 80306

== ENCOUNTER 2017-04-20 18:08 | Outpatient (CLI) | payer BC ==
[2017-04-20 19:40] LABS: BILIRUBIN,URINE NEGATIVE (NEGATIVE)
[2017-04-20 19:44] LABS: UA w/ MICROSCOPIC CHARGE YES
[2017-04-20 19:50] VITALS: BP 125/64
[2017-04-20 20:02] LABS: UR CULTURE IF IND NOT INDICATED
[2017-04-20 20:28] LABS: BILIRUBIN,URINE NEGATIVE (NEGATIVE)
[2017-04-20 20:44] LABS: UR CULTURE IF IND NOT INDICATED; WBC,URINE 0-3 /HPF (0-5)
== END 2017-04-20 21:00 | disposition home or self-care (01) ==
LOC: WFO 18:08 → FBP 18:09 → WFO 21:00
PROVIDERS: ATTEND Obstetrics & Gynecology
DX: O99.89 Other specified diseases and conditions complicating pregnancy, childbirth and the puerperium (principal); R10.30 Lower abdominal pain, unspecified; O99.613 Diseases of the digestive system complicating pregnancy, third trimester; K21.9 Gastro-esophageal reflux disease without esophagitis; Z3A.32 32 weeks gestation of pregnancy
CPT/HCPCS: 80306; 81001; 81003; 82731; 87086; 87491; 87591; 99213

== ENCOUNTER 2017-04-28 11:38 | Outpatient (CLI) | payer BC ==
[2017-04-28 11:58] VITALS: BP 107/88
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
== END 2017-04-28 15:00 | disposition home or self-care (01) ==
LOC: WFO 11:38 → FBP 11:39 → WFO 15:00
PROVIDERS: ATTEND Obstetrics & Gynecology
DX: O99.343 Other mental disorders complicating pregnancy, third trimester (principal); R45.851 Suicidal ideations; Z62.810 Personal history of physical and sexual abuse in childhood; F99 Mental disorder, not otherwise specified; Z91.5 Personal history of self-harm; Z3A.33 33 weeks gestation of pregnancy
CPT/HCPCS: 99213

== ENCOUNTER 2017-05-14 08:00 | Outpatient (CLI) | payer BC | END 2017-05-14 08:01 | disposition home or self-care (01) | LOC: LAB.R 08:00 | PROVIDERS: ATTEND Obstetrics & Gynecology | DX: Z36.2 Encounter for other antenatal screening follow-up (principal) | CPT/HCPCS: 87081 ==

== ENCOUNTER 2017-05-23 11:27 | Inpatient (IN) | payer BC, MEDICAID ==
[2017-05-23 12:11] LABS: BASOPHILS % (AUTO) 0.3 %; EOSINOPHILS % (AUTO) 0.2 %; HCT - HEMATOCRIT 30.3 % (37.0-47.0); HGB - HEMOGLOBIN 10.3 g/dL (12.0-16.0); LYMPHOCYTES # (AUTO) 1.5 10^3/uL (1.5-3.5); LYMPHOCYTES % (AUTO) 14.1 %; MEAN CORPUSCULAR HEMOGLOBIN 28.3 pg (27.0-31.0); MEAN CORPUSCULAR VOLUME 83.2 fL (81.0-99.0); MEAN PLATELET VOLUME 8.5 fL (7.9-10.8); MONOCYTES # (AUTO) 0.7 10^3/uL (0.0-1.0); MONOCYTES % (AUTO) 6.4 %; NEUTROPHILS # (AUTO) 8.2 10^3/uL (1.5-6.6); RED BLOOD COUNT 3.64 10^6/uL (4.20-5.40); RED CELL DISTRIBUTION WIDTH 14.7 % (12.0-15.0); UNCORRECTED WHITE BLOOD COUNT 10.4 x10^3/uL; WHITE BLOOD COUNT 10.4 x10^3/uL (4.8-10.8)
[2017-05-23] MEDS ORDERED: SODIUM CHLORIDE FLUSH 0.9% 10 ML SYRINGE IVP ONE (12:16)
[2017-05-23 12:26] LABS: BILIRUBIN,TOTAL 0.6 mg/dL (0.2-1.0); TOTAL PROTEIN 6.5 g/dL (6.7-8.2)
[2017-05-23 12:27] LABS: BILIRUBIN,DIRECT < 0.1 mg/dL (0.1-0.5)
[2017-05-23] MEDS ORDERED: DINOPROSTONE 10 MG SUPP VG ONE (12:47)
[2017-05-23] MEDS ORDERED: fentaNYL 100 MCG/2 ML VIAL IVP PRN (12:49)
[2017-05-23] MEDS ORDERED: LACTATED RINGERS 1,000 ML IV SCH (13:00)
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
[2017-05-23] MEDS ORDERED: OXYTOCIN/SODIUM CHLORIDE 250 ML IV ONE (15:54)
[2017-05-23] MEDS ORDERED: MINERAL OIL LIGHT 10 ML MC ONE (15:54)
[2017-05-23] MEDS ORDERED: PENICILLIN G POTASSIUM 5,000,000 UNIT in SODIUM CHLORIDE 0.9% MINIBAG 100 ML IV SCH (18:00)
[2017-05-23] MEDS: ACETAMINOPHEN 325 MG TABLET PO PRN (19:02)
[2017-05-23] MEDS ORDERED: fent/BUPIV 2 MCG/0.125% 250 ML EP ONE (20:26)
--- NOTE | 2017-05-23 21:20 | PROVIDER PROGRESS NOTE ---
Labor Progress Note - Uterine Monitoring Uterine Monitoring Mode: positive: External toco Contraction Frequency (min/apart): 1.5 min Contraction Intensity: positive: Mild to moderate Uterine Resting Tone: positive: Soft - Monitoring Monitor Mode: positive: External ultrasound Heart Rate Variability: positive: Moderate (6-25 bmp) Accelerations: positive: Present, 15x15, Present with movement Decelerations: positive: Early (Pt had a singleepisode of brasdycardia down to the 60-70's following placement of her epidural. she had hypotension which was treated with ephedrin and fluid bolis. heart now responding with reactive heart rate.) Strip Review: positive: Category I (now) - Vaginal Exam Dilation (in cm): 4.5 Effacement (%): 70 Station: -1 Cervical Position: Midposition - Labor Progress Note Labor Progress Note/Additional Text: will followup FHR. recheck cx.
[2017-05-23] MEDS: PENICILLIN G POTASSIUM 2,500,000 UNIT in SODIUM CHLORIDE 0.9% 100ML 100 ML IV SCH (21:56)
[2017-05-23] MEDS ORDERED: ONDANSETRON 4 MG/2 ML VIAL IVP PRN (22:22)
--- NOTE | 2017-05-23 22:41 | PROVIDER PROGRESS NOTE ---
Labor Progress Note - Uterine Monitoring Uterine Monitoring Mode: positive: External toco Contraction Frequency (min/apart): 1.75-2 Contraction Intensity: positive: Mild to moderate - Monitoring Monitor Mode: positive: External ultrasound Heart Rate Baseline: 155 Heart Rate Variability: positive: Moderate (6-25 bmp) Accelerations: positive: Present, 15x15 (with scalp stimulation) Decelerations: positive: None Strip Review: positive: Category I - Vaginal Exam Dilation (in cm): 6 Effacement (%): 90 Station: 0 Cervical Position: Midposition - Labor Progress Note Labor Progress Note/Additional Text: epidural degreasing progressing
[2017-05-23] MEDS: LACTATED RINGERS 1,000 ML IV ONE (23:59)
[2017-05-24] MEDS: PENICILLIN G POTASSIUM 2,500,000 UNIT in SODIUM CHLORIDE 0.9% 100ML 100 ML IV SCH ×3 (02:00→20:57)
[2017-05-24] MEDS ORDERED: ePHEDrine 50 MG/ML AMP IVP ONE (02:00)
--- NOTE | 2017-05-24 02:46 | PROVIDER PROGRESS NOTE ---
Labor Progress Note - Uterine Monitoring Uterine Monitoring Mode: positive: External toco Contraction Frequency (min/apart): 1.75 Contraction Intensity: positive: Mild to moderate Uterine Resting Tone: positive: Soft - Monitoring Monitor Mode: positive: External ultrasound Heart Rate Baseline: 155 Heart Rate Variability: positive: Moderate (6-25 bmp) Accelerations: positive: Present, 10x10 (=/32 wks), Present with movement Decelerations: positive: None Strip Review: positive: Category I - Vaginal Exam Dilation (in cm): 7 Effacement (%): 90 Station: 0 - Labor Progress Note Labor Progress Note/Additional Text: AROM with moderate Mec. Slow progress. Anticipate AROM will advance labor progress
[2017-05-24] MEDS: SODIUM CHLORIDE FLUSH 0.9% 10 ML SYRINGE IVP SCH (03:15)
[2017-05-24] MEDS ORDERED: OXYTOCIN/SODIUM CHLORIDE 250 ML IV ONE (05:29)
[2017-05-24] MEDS ORDERED: diphenhydrAMINE 25 MG CAPSULE PO PRN (05:29)
[2017-05-24] MEDS ORDERED: oxyCODONE 5 MG TABLET PO PRN (05:29)
--- NOTE | 2017-05-24 05:35 | DELIVERY NOTE ---
Delivery Note - Labor Labor: positive: Augmented by ARM, Induced by oxytocin - Infant Delivery Method Infant Delivery Method: positive: Spontaneous vaginal delivery - Cervical Ripening Method Cervical Ripening Method: positive: Prostaglandin E2 - Presentation Presentation: positive: Vertex, SERVANDO - right occiput anterior - Nuchal Cord Nuchal Cord: positive: Present (single), Reduced (on perineum) - Anesthetic Anesthetic Type: - Amniotic Fluid Description Amniotic Fluid Description: positive: Moderate meconium - Episiotomy Type Episiotomy Type: positive: None - Laceration Laceration: positive: None - Delivery Outcome Delivery Outcome: positive: Livebirth - Willcox : positive: Placed in direct skin contact with mother, Suctioned (with delee on the perineum), Bulb syringe, Cathether, Stimulated sex: positive: Male - Cord Cord: positive: 3 vessels - Placenta Placenta: positive: Intact, Spontaneous, Meconium stained - Estimated Blood Loss Estimated Blood Loss (in cc): 300 - Delivery Comments (Free Text/Narrative) Delivery Comments (Free Text/Narrative): Pt was induced for labial HTN. Cervidel placed . developed contractions strong in nature. Epidural placed. mother had hypotension which responded to Ephedrin and fluid challenge. baby had single episode of deep bradycardia which responded to maternal resuscitation. strip responded AROM performed at 0238 moderate mec encountered. Complete at 0406 alowed to labor down and started pushing ad 0438. At 0500 live male Apgars 8/9 delivered over intact perneum. At time of delivery of the head the naso and oral pharnex was Delee suctioned. Placenta followed at 0508.
[2017-05-24] MEDS: ACETAMINOPHEN 325 MG TABLET PO PRN (08:36)
[2017-05-24] MEDS: IBUPROFEN 800 MG TABLET PO SCH ×2 (08:37→17:59)
[2017-05-24] MEDS: SIMETHICONE CHEW 80 MG TABLET PO SCH (08:38)
[2017-05-24] MEDS: DOCUSATE SODIUM 100 MG CAPSULE PO SCH ×2 (08:42→22:18)
[2017-05-24] MEDS ORDERED: LACTATED RINGERS 1,000 ML IV SCH (09:34)
[2017-05-24] MEDS: diazePAM 5 MG TABLET PO SCH ×2 (10:23→20:56)
[2017-05-24] MEDS: LACTATED RINGERS 1,000 ML IV ONE (12:37)
[2017-05-24] MEDS ORDERED: ACETAMINOPHEN 1,000 MG/100 ML 100 ML IV SCH (18:00)
[2017-05-24 18:19] LABS: BASOPHILS # (AUTO) 0.1 10^3/uL (0.0-0.1); BASOPHILS % (AUTO) 0.6 %; EOSINOPHILS % (AUTO) 0.1 %; HCT - HEMATOCRIT 29.8 % (37.0-47.0); HGB - HEMOGLOBIN 9.8 g/dL (12.0-16.0); LYMPHOCYTES # (AUTO) 1.9 10^3/uL (1.5-3.5); LYMPHOCYTES % (AUTO) 14.3 %; MEAN CORPUSCULAR HEMOGLOBIN 27.9 pg (27.0-31.0); MEAN CORPUSCULAR HGB CONC 32.8 g/dL (32.0-36.0); MEAN CORPUSCULAR VOLUME 85.2 fL (81.0-99.0); MEAN PLATELET VOLUME 8.6 fL (7.9-10.8); MONOCYTES # (AUTO) 0.9 10^3/uL (0.0-1.0); MONOCYTES % (AUTO) 6.3 %; NEUTROPHILS # (AUTO) 10.7 10^3/uL (1.5-6.6); NEUTROPHILS % (AUTO) 78.7 %; RED CELL DISTRIBUTION WIDTH 15.1 % (12.0-15.0); UNCORRECTED WHITE BLOOD COUNT 13.6 x10^3/uL; WHITE BLOOD COUNT 13.6 x10^3/uL (4.8-10.8)
[2017-05-24] MEDS ORDERED: CAFFEINE/SODIUM BENZOATE 500 MG in SODIUM CHLORIDE 0.9% 1,000 ML IV SCH (18:30)
[2017-05-24] MEDS: LACTATED RINGERS 1,000 ML IV SCH (23:25)
[2017-05-25] MEDS: IBUPROFEN 800 MG TABLET PO SCH ×4 (00:04→18:25)
[2017-05-25] MEDS: SIMETHICONE CHEW 80 MG TABLET PO SCH ×2 (03:45→21:43)
[2017-05-25] MEDS: DOCUSATE SODIUM 100 MG CAPSULE PO SCH ×2 (08:59→21:37)
[2017-05-25] MEDS: ACETAMINOPHEN 325 MG TABLET PO PRN ×3 (09:33→21:36)
[2017-05-25] MEDS: LACTATED RINGERS 1,000 ML IV SCH ×2 (09:34→19:59)
[2017-05-25] MEDS: SODIUM CHLORIDE FLUSH 0.9% 10 ML SYRINGE IVP SCH (09:37)
[2017-05-25] MEDS: diazePAM 5 MG TABLET PO SCH (10:26)
--- NOTE | 2017-05-25 11:34 | PROVIDER PROGRESS NOTE ---
Subjective - General Admit Date: 05/23/17 Procedure Date: 05/23/17 Post Op Days: 2 Procedure Performed: Normal vaginal delivery - Review of Systems Wound/Incisions: positive: Healing well, Drainage (Small lochia rubra, non-foul) Drain Type: None General: positive: No symptoms HEENT: positive: Headaches (Patient notes a headache when the angle of the bed is inclined >20.) Pulmonary: positive: No symptoms Cardiovascular: positive: No symptoms Gastrointestinal: positive: No symptoms, Flatus, Other (Patient is able to take solid nutrition in a almost supine state) Genitourinary: positive: No symptoms Musculoskeletal: positive: Back pain (Lumbar pain secondary to epidural and blood patch) Skin: positive: No symptoms Neurological: Psychiatric: positive: No symptoms, Other (Patient's mood is happy and does not have any anxiety) Objective - Patient Data Vital Signs: Vital Signs x48h Temp Pulse Resp BP Pulse Ox 05/25/17 08:15 99.0 F 78 12 122/60 100 05/25/17 04:10 97.7 F 84 20 111/53 L 100 Weight: Weight 05/23/17 05/24/17 05/25/17 23:59 23:59 23:59 Weight (kg) 92.079 kg Intake & Output: Intake and Output Totals x24h 05/23/17 05/24/17 05/25/17 23:59 23:59 23:59 Intake Total 1450 2352 1300 Output Total 250 6575 2150 Balance 7933 -5633 -182 - Lab Results Lab Results: 05/24/17 18:08 Other Lab Results: Lab Results x24hrs 05/24/17 Range/Units 18:08 WBC 13.6 H (4.8-10.8) x10^3/uL RBC 3.50 L (4.20-5.40) 10^6/uL Hgb 9.8 L (12.0-16.0) g/dL Hct 29.8 L (37.0-47.0) % MCV 85.2 (81.0-99.0) fL MCH 27.9 (27.0-31.0) pg MCHC 32.8 (32.0-36.0) g/dL RDW 15.1 H (12.0-15.0) % Plt Count 212 (130-450) 10^3/uL MPV 8.6 (7.9-10.8) fL Neut # 10.7 H (1.5-6.6) 10^3/uL Lymph # 1.9 (1.5-3.5) 10^3/uL [place] # 0.9 (0.0-1.0) 10^3/uL Eos # 0.0 (0.0-0.7) 10^3/uL Baso # 0.1 (0.0-0.1) 10^3/uL Absolute Nucleated RBC 0.00 x10^3/uL Nucleated RBC % 0.0 /100WBC - Current Medications Current Medications: Current Medications Generic Name Dose Route Start Last Admin Trade Name Freq PRN Reason Stop Dose Admin Acetaminophen 650 mg 05/23/17 12:49 05/25/17 09:33 Tylenol PO 650 mg Q6H PRN Administration Pain or Fever Diazepam 5 mg 05/24/17 10:00 05/25/17 10:26 Valium PO Not Given Q6H MAIRA Docusate Sodium 100 mg 05/24/17 09:00 05/25/17 08:59 Colace 100mg Capsule PO 100 mg BID MAIRA Administration Lactated Ringer's 1,000 mls @ 100 mls/hr 05/24/17 06:00 05/25/17 09:34 Lr IV 100 mls/hr .Q10H MAIRA Administration Ibuprofen 800 mg 05/24/17 06:00 05/25/17 06:22 Motrin PO 800 mg Q6H MAIRA Administration Ondansetron HCl 4 mg 05/23/17 22:22 05/23/17 22:28 Zofran Inj IVP 4 mg Q4HR PRN Administration Nausea / Vomiting Simethicone 80 mg 05/24/17 06:00 05/25/17 03:45 Mylicon PO 80 mg TID MAIRA Administration Sodium Chloride 10 ml 05/23/17 14:00 05/25/17 09:37 Normal Saline Flush 0.9% IVP 10 ml Q8HR MAIRA Administration Exam - Exam Vital Signs: Vital Signs (72 hours) 05/23/17 05/23/17 05/24/17 11:53 19:56 05:08 Temperature 99.0 F 99.1 F Heart Rate [ 104 H 99 115 H Apical] Respiratory 18 24 24 Rate Blood Pressure 125/72 135/79 H 118/47 L [Right Brachial artery] O2 Saturation 99 100 100 05/24/17 05/24/17 05/24/17 05:15 05:30 05:45 Temperature Heart Rate [ 113 H 104 H 104 H Apical] Respiratory 20 20 20 Rate Blood Pressure 122/57 L 122/53 L 118/50 L [Right Brachial artery] O2 Saturation 100 100 100 05/24/17 05/24/17 05/24/17 06:00 06:15 06:30 Temperature 97.7 F Heart Rate [ 104 H 98 95 Apical] Respiratory 20 18 20 Rate Blood Pressure 108/79 112/61 116/58 L [Right Brachial artery] O2 Saturation 99 100 05/24/17 05/24/17 05/24/17 06:45 09:00 12:40 Temperature 99.0 F Heart Rate [ 94 102 H 87 Apical] Respiratory 20 18 18 Rate Blood Pressure 113/64 133/62 H 122/66 [Right Brachial artery] O2 Saturation 100 100 05/24/17 05/24/17 05/24/17 13:10 16:13 20:15 Temperature 97.9 F 98.2 F 98.2 F Heart Rate [ 83 78 84 Apical] Respiratory 18 18 18 Rate Blood Pressure 126/69 122/69 115/56 L [Right Brachial artery] O2 Saturation 100 100 99 05/25/17 05/25/17 05/25/17 00:17 04:10 08:15 Temperature 98.7 F 97.7 F 99.0 F Heart Rate [ 91 84 78 Apical] Respiratory 20 20 12 Rate Blood Pressure 107/44 L 111/53 L 122/60 [Right Brachial artery] O2 Saturation 100 100 100 General: Alert, Oriented x3 HEENT: Atraumatic, EOMI, Mucous membr. moist/pink Abdomen: No tenderness, Other (Uterus is 17 weeks size firm and nontender) Extremities: No cyanosis, No edema, No tenderness/swelling Skin: No rashes Neurological: Normal speech, Normal tone, Sensation intact Psych/Mental Status: Mood NL Assessment/Plan - Assessment/Plan Assessment: Patient is recovering well from a vaginal delivery after a wet tap epidural. She received a blood patch and was supine for approximately 24 hours. There are no meningeal signs or neurologic disturbances. She has no fever or signs of illness. Today we will gradually increase the inclination of the head of the bed towards a sitting position. Discussed the plan with the patient and she feels as if she can comply. Motrin and [place] are providing an appropriate amount of pain relief. Patient's mood and demeanor seem fine. Plan: Gradually increase inclination of the bed towards sitting Encourage breast-feeding services manager to see patient later today. Anesthesia service will continue to work with the patient to help manage wet tap spinal.
[2017-05-26] MEDS: IBUPROFEN 800 MG TABLET PO SCH ×2 (00:41→05:47)
[2017-05-26] MEDS: SODIUM CHLORIDE FLUSH 0.9% 10 ML SYRINGE IVP PRN ×3 (00:43→12:55)
[2017-05-26] MEDS: ACETAMINOPHEN 325 MG TABLET PO PRN ×2 (02:20→08:14)
[2017-05-26] MEDS: LACTATED RINGERS 1,000 ML IV SCH (02:20)
[2017-05-26] MEDS: DOCUSATE SODIUM 100 MG CAPSULE PO SCH ×2 (08:15→22:11)
--- NOTE | 2017-05-26 11:17 | PROVIDER PROGRESS NOTE ---
Subjective - General Admit Date: 05/23/17 Procedure Date: 05/23/17 Post Op Days: 3 Procedure Performed: Normal vaginal delivery - Review of Systems Wound/Incisions: positive: Healing well, Drainage (Small lochia rubra, non-foul) Drain Type: None General: positive: No symptoms HEENT: positive: Headaches (Patient notes a headache when the angle of the bed is inclined >20.), Other (Patient reports spasm in the neck and unable to turn to the left side well.) Pulmonary: positive: No symptoms Cardiovascular: positive: No symptoms Gastrointestinal: positive: No symptoms, Flatus, Constipation (Due to being supine patient has not had a bowel movement in the last 3 days), Other (Patient is able to take solid nutrition in a almost supine state) Genitourinary: positive: No symptoms, Other (Galvez in place because patient is bedridden) Musculoskeletal: positive: Back pain (Lumbar pain secondary to epidural and blood patch), Other (SCDs in place) Skin: positive: No symptoms Psychiatric: positive: No symptoms, Other (Patient's mood is happy and does not have any anxiety) - Other Other Information/Narrative: Patient was upright in bed and consuming solid food this morning.After taking a nap in the supine she developed a severe headache and noted some neck stiffness , restriction in being able to rotate to the left. She has no fevers or chills. She reports no focal neurologic changes such as weakness, sensation change etc. She has not been supine for over 48 hours and not had a bowel movement. She attempted a bowel movement on a bedpan but could not. Objective - Patient Data Vital Signs: Vital Signs x48h Temp Pulse Resp BP Pulse Ox 05/26/17 10:45 98 18 120/60 100 05/26/17 10:38 98.9 F 05/26/17 08:16 99.0 F 82 16 136/72 H 100 Intake & Output: Intake and Output Totals x24h 05/24/17 05/25/17 05/26/17 23:59 23:59 22:59 Intake Total 2352 4300 1843 Output Total 6599 5300 2330 Balance -4223 -1000 -487 - Lab Results Lab Results: 05/24/17 18:08 - Current Medications Current Medications: Current Medications Generic Name Dose Route Start Last Admin Trade Name Freq PRN Reason Stop Dose Admin Acetaminophen 650 mg 05/23/17 12:49 05/26/17 08:14 Tylenol PO 650 mg Q6H PRN Administration Pain or Fever Diazepam 5 mg 05/24/17 10:00 05/25/17 10:26 Valium PO Not Given Q6H MAIRA Docusate Sodium 100 mg 05/24/17 09:00 05/26/17 08:15 Colace 100mg Capsule PO 100 mg BID MAIRA Administration Lactated Ringer's 1,000 mls @ 100 mls/hr 05/24/17 06:00 05/26/17 05:46 Lr IV Infused .Q10H MAIRA Infusion Ibuprofen 800 mg 05/24/17 06:00 05/26/17 05:47 Motrin PO 800 mg Q6H MAIRA Administration Ondansetron HCl 4 mg 05/23/17 22:22 05/23/17 22:28 Zofran Inj IVP 4 mg Q4HR PRN Administration Nausea / Vomiting Simethicone 80 mg 05/24/17 06:00 05/25/17 21:43 Mylicon PO 80 mg TID MAIRA Administration Sodium Chloride 10 ml 05/23/17 14:00 05/25/17 09:37 Normal Saline Flush 0.9% IVP 10 ml Q8HR MAIRA Administration Sodium Chloride 10 ml 05/23/17 12:49 05/26/17 00:43 Normal Saline Flush 0.9% IVP 10 ml PRN PRN Administration NEEDED PER PROVIDER ORDERS Exam - Exam Vital Signs: Vital Signs (72 hours) 05/23/17 05/24/17 05/24/17 19:56 05:08 05:15 Temperature 99.1 F Heart Rate [ 99 115 H 113 H Apical] Respiratory 24 24 20 Rate Blood Pressure 135/79 H 118/47 L 122/57 L [Right Brachial artery] O2 Saturation 100 100 100 05/24/17 05/24/17 05/24/17 05:30 05:45 06:00 Temperature 97.7 F Heart Rate [ 104 H 104 H 104 H Apical] Respiratory 20 20 20 Rate Blood Pressure 122/53 L 118/50 L 108/79 [Right Brachial artery] O2 Saturation 100 100 99 05/24/17 05/24/17 05/24/17 06:15 06:30 06:45 Temperature Heart Rate [ 98 95 94 Apical] Respiratory 18 20 20 Rate Blood Pressure 112/61 116/58 L 113/64 [Right Brachial artery] O2 Saturation 100 05/24/17 05/24/17 05/24/17 09:00 12:40 13:10 Temperature 99.0 F 97.9 F Heart Rate [ 102 H 87 83 Apical] Respiratory 18 18 18 Rate Blood Pressure 133/62 H 122/66 126/69 [Right Brachial artery] O2 Saturation 100 100 100 05/24/17 05/24/17 05/25/17 16:13 20:15 00:17 Temperature 98.2 F 98.2 F 98.7 F Heart Rate [ 78 84 91 Apical] Respiratory 18 18 20 Rate Blood Pressure 122/69 115/56 L 107/44 L [Right Brachial artery] O2 Saturation 100 99 100 05/25/17 05/25/17 05/25/17 04:10 08:15 11:48 Temperature 97.7 F 99.0 F 98.8 F Heart Rate [ 84 78 88 Apical] Respiratory 20 12 16 Rate Blood Pressure 111/53 L 122/60 115/62 [Right Brachial artery] O2 Saturation 100 100 100 05/25/17 05/25/17 05/26/17 15:06 21:00 02:00 Temperature 98.8 F 99.0 F 99.1 F Heart Rate [ 77 88 86 Apical] Respiratory 16 18 18 Rate Blood Pressure 130/59 L 124/63 114/59 L [Right Brachial artery] O2 Saturation 100 100 98 05/26/17 05/26/17 05/26/17 08:16 10:38 10:45 Temperature 99.0 F 98.9 F Heart Rate [ 82 98 Apical] Respiratory 16 18 Rate Blood Pressure 136/72 H 120/60 [Right Brachial artery] O2 Saturation 100 100 General: Alert, Oriented x3, Cooperative, No acute distress HEENT: EOMI, Mucous membr. moist/pink, Other (Patient able to place her chin on her chest; mild restriction in rotating her head to the left but normal to the right; Cranial nerves intact by gross observation) Lungs: Clear to auscultation Cardiovascular: Regular rate, Normal S1, Normal S2, No murmurs Abdomen: Normal bowel sounds, Soft, Other (Uterus nontender and firm approximately 15 week size; Lochia reported non-foul and mild) Extremities: No edema, No tenderness/swelling, Other (Compression boots in use) Skin: No rashes, No breakdown Neurological: Normal speech, Normal tone, Sensation intact, Reflexes 2+ (Right knee patellar reflex slightly diminished probably due to prior surgery) Psych/Mental Status: Mental status NL Assess/Plan - Patient Problems Active Problems Comments: Patient recovering well from normal vaginal delivery and breast-feeding without difficulty. Sequela of epidural remains problematic and recovery slow. Forward progress was made yesterday culminating in the patient being able to sit upright for breakfast this morning. Unfortunately she is backslid and we must again return to the supine for pain relief. Patient does not have meningeal signs but rather some neck spasm secondary to restricted positioning, being in the supine. Having to eat and nurse her child in the supine undoubtedly strains her neck. Will begin again our gradual increase in the inclination of the head of the bed. Based on patient's prior emotional health history, she may have fear of progressing forward and recovering from the headaches. Then again, spinal headaches are notoriously painful - Additional Planning Addtl Planning notes: 1. Remain supine for now then in the afternoon begin inclining the bed gradually 2. Tylenol 1 g IV piggyback 3. Intake output balance currently negative with oral consumption, bolus IV fluids 1 L 4. Begin anti-constipation protocol 5. Anesthesia service to see patient later today to provide further suggestions Condition/Complexity: Stable Plan Discussed with:: Patient, Family
[2017-05-26] MEDS: diazePAM 5 MG TABLET PO SCH (11:23)
[2017-05-26] MEDS: SODIUM CHLORIDE FLUSH 0.9% 10 ML SYRINGE IVP SCH (11:27)
[2017-05-26] MEDS ORDERED: CAFFEINE/SODIUM BENZOATE 500 MG in SODIUM CHLORIDE 0.9% 1,000 ML IV ONE (11:50)
[2017-05-26] MEDS ORDERED: SUMAtriptan 25 MG TABLET PO PRN (11:53)
[2017-05-26] MEDS ORDERED: ACETAMINOPHEN 1,000 MG/100 ML 100 ML IV ONE (12:00)
--- NOTE | 2017-05-26 12:02 | ANESTHESIA POST OP EVALUATION ---
Anesthesia Post Eval - Post Anesthesia Eval CV Function Including HR & BP: positive: Stable Pain Control: positive: Adequate, Additional Therapies Ordered (Pt continues to have all the symptoms of a post dural puncture headache, headache when head of bed elevated, nuchal pain with some rigidity and photophobia (no nausea/vomiting ). She states the headache is a 7/10. I ordered IV caffeine, PO toradol and PO imitrex. Will consult with Dr. Barnhart.)
[2017-05-26] MEDS: KETOROLAC 10 MG TABLET PO PRN ×2 (12:23→18:28)
[2017-05-26] MEDS: POLYETHYLENE GLYCOL 3350 17 GM PACKET PO SCH (15:54)
[2017-05-27] MEDS: KETOROLAC 10 MG TABLET PO PRN ×2 (00:43→06:33)
[2017-05-27 05:54] LABS: BASOPHILS % (AUTO) 0.3 %; EOSINOPHILS # (AUTO) 0.2 10^3/uL (0.0-0.7); EOSINOPHILS % (AUTO) 2.5 %; HCT - HEMATOCRIT 25.1 % (37.0-47.0); HGB - HEMOGLOBIN 8.2 g/dL (12.0-16.0); LYMPHOCYTES # (AUTO) 1.5 10^3/uL (1.5-3.5); LYMPHOCYTES % (AUTO) 18.3 %; MEAN CORPUSCULAR HEMOGLOBIN 28.2 pg (27.0-31.0); MEAN CORPUSCULAR HGB CONC 32.8 g/dL (32.0-36.0); MEAN PLATELET VOLUME 7.7 fL (7.9-10.8); MONOCYTES # (AUTO) 0.4 10^3/uL (0.0-1.0); MONOCYTES % (AUTO) 4.5 %; NEUTROPHILS % (AUTO) 74.4 %; NUCLEATED RED BLOOD CELLS AUTO 0.1 /100WBC; RED BLOOD COUNT 2.92 10^6/uL (4.20-5.40); UNCORRECTED WHITE BLOOD COUNT 8.1 x10^3/uL; WHITE BLOOD COUNT 8.1 x10^3/uL (4.8-10.8)
[2017-05-27] MEDS: SODIUM CHLORIDE FLUSH 0.9% 10 ML SYRINGE IVP SCH ×3 (07:36→07:39)
[2017-05-27] MEDS: diazePAM 5 MG TABLET PO SCH ×3 (07:37→07:39)
[2017-05-27] MEDS: SIMETHICONE CHEW 80 MG TABLET PO SCH (07:38)
[2017-05-27] MEDS: LACTATED RINGERS 1,000 ML IV SCH ×2 (07:38→07:39)
[2017-05-27 08:25] VITALS: BP 115/61
[2017-05-27] MEDS: POLYETHYLENE GLYCOL 3350 17 GM PACKET PO SCH (09:01)
[2017-05-27] MEDS: DOCUSATE SODIUM 100 MG CAPSULE PO SCH (09:05)
--- NOTE | 2017-05-27 09:11 | PROVIDER PROGRESS NOTE ---
Subjective - General Admit Date: 05/23/17 Procedure Date: 05/23/17 Post Op Days: 4 Procedure Performed: Normal vaginal delivery - Review of Systems Wound/Incisions: positive: Healing well, Drainage (Small lochia rubra, non-foul) Drain Type: None General: positive: No symptoms (Head ach resolved with Toradol, Blood patch, and Caffeen.) HEENT: positive: Headaches (Patient notes a headache when the angle of the bed is inclined >20.), Other (Patient reports spasm in the neck and unable to turn to the left side well.) Pulmonary: positive: No symptoms Cardiovascular: positive: No symptoms Gastrointestinal: positive: No symptoms, Flatus, Constipation (Pt passing Stool. ), Other (Patient is able to take solid nutrition in a almost supine state) Genitourinary: positive: No symptoms, Other (Galvez in place because patient is bedridden) Musculoskeletal: positive: Back pain (Lumbar pain secondary to epidural and blood patch), Other (SCDs in place) Skin: positive: No symptoms Psychiatric: positive: No symptoms, Other (Patient's mood is happy and does not have any anxiety) Objective - Patient Data Reviewed Vital Signs: Yes Vital Signs: Vital Signs x48h Temp Pulse Resp BP Pulse Ox 05/27/17 08:25 36.7 C 81 18 115/61 100 05/27/17 05:30 37.3 C 78 18 121/62 100 Intake & Output: Intake and Output Totals x24h 05/26/17 05/26/17 05/27/17 00:59 23:59 23:59 Intake Total Output Total Balance - Lab Results Lab Results: 05/27/17 05:20 Other Lab Results: Lab Results x24hrs 05/27/17 Range/Units 05:20 WBC 8.1 (4.8-10.8) x10^3/uL RBC 2.92 L (4.20-5.40) 10^6/uL Hgb 8.2 L (12.0-16.0) g/dL Hct 25.1 L (37.0-47.0) % MCV 86.0 (81.0-99.0) fL MCH 28.2 (27.0-31.0) pg MCHC 32.8 (32.0-36.0) g/dL RDW 15.0 (12.0-15.0) % Plt Count 223 (130-450) 10^3/uL MPV 7.7 L (7.9-10.8) fL Neut # 6.0 (1.5-6.6) 10^3/uL Lymph # 1.5 (1.5-3.5) 10^3/uL [place] # 0.4 (0.0-1.0) 10^3/uL Eos # 0.2 (0.0-0.7) 10^3/uL Baso # 0.0 (0.0-0.1) 10^3/uL Absolute Nucleated RBC 0.00 x10^3/uL Nucleated RBC % 0.1 /100WBC - Current Medications Current Medications: Current Medications Generic Name Dose Route Start Last Admin Trade Name Freq PRN Reason Stop Dose Admin Acetaminophen 650 mg 05/23/17 12:49 05/26/17 08:14 Tylenol PO 650 mg Q6H PRN Administration Pain or Fever Diazepam 5 mg 05/24/17 10:00 05/27/17 07:39 Valium PO Not Given Q6H [facility] Docusate Sodium 100 mg 05/24/17 09:00 05/27/17 09:05 Colace 100mg Capsule PO 100 mg BID MAIRA Administration Lactated Ringer's 1,000 mls @ 100 mls/hr 05/24/17 06:00 05/27/17 07:39 Lr IV Not Given .Q10H [facility] Ketorolac Tromethamine 10 mg 05/26/17 11:52 05/27/17 06:33 Toradol PO 05/31/17 11:51 10 mg Q6HR PRN Administration PAIN Ondansetron HCl 4 mg 05/23/17 22:22 05/23/17 22:28 Zofran Inj IVP 4 mg Q4HR PRN Administration Nausea / Vomiting Polyethylene Glycol 17 gm 05/26/17 16:00 05/27/17 09:01 Miralax PO Not Given DAILY [facility] Simethicone 80 mg 05/24/17 06:00 05/27/17 07:38 Mylicon PO Not Given TID [facility] Sodium Chloride 10 ml 05/23/17 14:00 05/27/17 07:39 Normal Saline Flush 0.9% IVP Not Given Q8HR [facility] Sodium Chloride 10 ml 05/23/17 12:49 05/26/17 12:55 Normal Saline Flush 0.9% IVP 10 ml PRN PRN Administration NEEDED PER PROVIDER ORDERS Sumatriptan Succinate 25 mg 05/26/17 11:53 05/26/17 12:24 Imitrex PO 05/27/17 11:52 25 mg ONCE PRN Administration Analgesia - Physical Exam General Appearance: positive: No acute distress (Jhonatan CORDON), Alert Respiratory: positive: Chest non-tender, No respiratory distress, Breath sounds nml Cardiovascular: positive: Regular rate & rhythm, No murmur, No gallop Abdomen: positive: Non-tender, No organomegaly, No distention, Mass (U-3) Skin: positive: Color nml, No rash, Warm Extremities: negative: Calf tenderness, No's sign/cords Neurologic/Psychiatric: positive: Oriented x3, CN's nml (2-12) Impression/Plan - Problem List Problem List: PPD#3 Recovering from with out difficulty Spinal CORDON: Responding to Blood Patch, Caffeen, and Toradol. Discharge to Home. encouraged Caffeen, may use coffee or Mountain Dew Contraception, would like Mirena Meds Toradol 10mg Motrin 800 mg ( not to take while on toradol Colace RTC 1 and 6 weeks
--- NOTE | 2017-05-27 09:18 | Discharge Plan ---
Discharge Plan Disposition: 01 Home, Self Care Condition: Good Diet: Regular Activity Restrictions: pelvic rest 6 weeks Shower Restrictions: No Driving Restrictions: No Weight Bearing: Full Weight No Smoking: If you smoke, Please STOP! Call for help. Follow-up with: Ab Pyle MD [Provider Admit Priv/Credential] -
--- NOTE | 2017-05-27 11:25 | Labor Flowsheet ---
Labor Flowsheet Datetime Report Generated by CPN: 05/27/2017 11:25 Datetime: 05/27/2017 07:54 VITAL SIGNS NBP Sys/Carol/Mean (mmHg): 115 : 61 : 73 Pulse: 80 SpO2 (%): 100 LaborFlag: Labor Datetime: 05/24/2017 04:45 Respirations: 24 UTERINE ACTIVITY Monitor Mode: External Frequency (min): 2-3 Quality: Moderate Duration (sec): 45-70 Pattern: Normal: <= 5 Contractions in 10 Minutes Resting Tone (Palpate): Relaxed ASSESSMENT A Monitor Mode: External US FHR Baseline Rate : 145 FHR Baseline Changes: No Baseline Change Variability: Moderate 6-25 bpm Accelerations: 10X10 Decelerations: Variable Actions for Decelerations: Occas mild variables to 120-130 X <15sec Category: Category I PAIN Pain Scale: 0 Pain Presence: None/Denies Pain Type: N/A Pain Goal: 3 Anesthesia Level Check: T7 Datetime: 05/24/2017 04:38 Contraction Comments: pushing begun Datetime: 05/24/2017 04:30 TEACHING Instructional Method: Demo; Patient Instructed; Family/Support Person Instructed; Verbalized Unders tanding Plan of Care: Plan of Care Discussed; Vaginal Delivery Labor/Induction: Pushing Methods Datetime: 05/24/2017 04:25 Provider Reviewed Strip: Yes (Annotations: Dr Pyle at bedside for delivery. RT here for meconium/NR P if needed.) STAGE 2 Pushing: Coached on Pushing; No Urge to Push Pushing Position: Pushing Lithotomy Datetime: 05/24/2017 04:06 VAGINAL EXAM Dilatation (cm): 10.0 Effacement (%): 100 Station: 2 Exam by: Spear RNC Vaginal Exam Comments: mod mec noted Datetime: 05/24/2017 04:00 Pain Relief Measures: Epidural Given Pain Coping: Talking Through Contractions; Sleeping Datetime: 05/24/2017 02:50 Anesthesia Comments: Unable to move legs/self in bed; level to cold at T7. No further c/o numb arms , breasts. Datetime: 05/24/2017 02:40 I/O Interventions: barfield emptied; 800cc clear yellow urine Datetime: 05/24/2017 02:38 Membrane Status: Ruptured Membranes Ruptured Date/Time: 05/24/2017 02:38 Membranes Rupture Method: Artificial Amniotic Fluid Color: mod mec Amniotic Fluid Amount: Small Amniotic Fluid Odor: Normal Vaginal Bleeding: None Cervix, Consistency: Soft Cervix, Position: Anterior Membrane Comments: mod meconium Datetime: 05/24/2017 02:01 Temperature (C): 37.5 Temperature Route: Oral Datetime: 05/24/2017 01:00 Comfort Measures: Family Support (Annotations: comfortable with epidural) Datetime: 05/24/2017 00:30 Pain Assessment Comments: now comfortable with epidural Oxygen Method: Room Air Datetime: 05/24/2017 00:02 COMMUNICATION Communication: Provider at Bedside Provider Notified (Name): Dr Garcia Notification Reason: Status Update; Labor Status; Uterine Activity; Pain Communication Comments: To begin epidural infusion at 4cc/hr Datetime: 05/24/2017 00:00 Monitor Interventions for UA: [place] Adjusted Datetime: 05/23/2017 23:54 Pain Location: Right Groin; Left Groin Datetime: 05/23/2017 23:46 Stage of : Labor Datetime: 05/23/2017 22:53 Comments: O2 now off MATERNAL ASSESSMENT Level of Consciousness: Fully Conscious Headache: Denies Nausea/Vomiting: Denies RUQ Epigastric Pain: Denies Oxygen Amount (LPM): 0 Patient Position/Activity: Left Tilt Datetime: 05/23/2017 22:29 Antiemetics/Antacids: Zofran (mg) @ 4 Datetime: 05/23/2017 22:00 Antibiotics: Penicillin IV (Units) @ 2.5 Datetime: 05/23/2017 21:33 MEDICATIONS Magnesium/Antihypertensives: Ephedrine IV (mg) @ 10 Medication Comments: Given by Dr Garcia Datetime: 05/23/2017 21:30 Strip Reviewed by: Giem Datetime: 05/23/2017 21:15 ANESTHESIA Anesthesia Plans: Epidural; Spinal Datetime: 05/23/2017 20:50 Monitor Interventions for FHR: Ultrasound Adjusted Datetime: 05/23/2017 20:44 Patient Care Comments: 2nd RN called to room Datetime: 05/23/2017 20:39 Epidural Procedure: Test Dose Datetime: 05/23/2017 20:29 PROCEDURE TIME OUT Procedure Type: 2020 Procedure Verify: Correct Patient Identity; Correct Side and Site are Marked; Accurate Procedure Co nsent Form; Agreement on Procedure to be Done; Correct Patient Position; Safety Precautions Based on Patient History or Medication Use Epidural Positioning: Side Lying Datetime: 05/23/2017 19:30 DTR's/Clonus: DTRs 2+; No Clonus Breath Sounds, Left: Clear and Equal Breath Sounds, Right: Clear and Equal Procedures: Sterile Vag Exam Consults: Anesthesia Datetime: 05/23/2017 19:29 Cervical Ripening Agents Other: cervidil removed due to dilation Datetime: 05/23/2017 18:38 Analgesics/Sedatives: Fentanyl (mcg) @ 50 Datetime: 05/23/2017 17:47 PATIENT CARE IV/Blood Work: IV Infusing per Order Datetime: 05/23/2017 13:10 Cervical Ripening Agents: Cervidil
[2017-05-27] MEDS ORDERED: POLYETHYLENE GLYCOL 3350 17 GM PACKET PO SCH (15:27)
--- NOTE | 2017-07-02 09:06 | DISCHARGE SUMMARY ---
ADMITTING DIAGNOSES 1. 37.4 weeks. 2. Gestational hypertension with headache. 3. History of contractions. 4. History of suicidal ideation. DISCHARGE DIAGNOSES 1. 37.4 weeks. 2. Gestational hypertension with headache. 3. History of contractions. 4. History of suicidal ideation. 5. Moderate meconium. 6. Spinal headache. PROCEDURE 1. Cervical ripening with Cervidil. 2. Epidural with wet tap. 3. Hypotension. 4. Spontaneous vaginal delivery. 5. Blood patch. PRESENTING HISTORY: The patient is a 22-year-old G2, P1-0-1-1 who was 37.4 weeks. She was noted in the clinic to have blood pressures 152/90 with a recheck x2. She complained of headache as well as visual changes at that time. She had been seen previously, at which time she had multiple checks with a blood pressure 140s over 90, but normal blood pressures in labor and delivery. She had some difficulty with contractions which were treated with Procardia. She received betamethasone. She initiated her care in [place], [place], but transferred roughly 32 weeks. There was some difficulty getting a hold of her records. LAB DATA: The patient on admission had a white count of 10.4, hemoglobin 10.3, hematocrit 30.3 with platelets of 227. Her hemoglobin fell to a ashwini on the of 8.2, which she was tolerating well. Her white count maxed at 13.6 on 09/2016 but fell back to 8.1 on the 27 of May. Platelets remained stable in the 220 range. The patient had PIH labs which a protein creatinine ratio was 0.1. Her ALT and AST were bulb were both normal. The patient had a U-tox which was negative for all drugs tested. HOSPITAL COURSE: The patient was admitted to Labor and Delivery because of her headaches and blood pressure. She received Cervidil for cervical ripening. The following day she was started on Pitocin. She received an epidural for labor analgesia and it was a difficult stick and thus developed a wet tap. Subsequent to this, she was felt to be a high spinal with hypotension, which was treated with ephedrine as well as IV fluids. Her strip normalized. She progressed on to complete and was artificially ruptured at 2:38. Moderate meconium was encountered. She reached complete at 4:06, was allowed to labor down and was started pushing at 4:38. At 5:00 a live male with Apgars 8 and 9 was delivered over an intact perineum. At time of delivery the head and nasopharynx were DeLee suctioned on the perineum. The infant responded quite well and was very active at time of delivery. The placenta followed at 05:08 was inspected and noted to be intact. Her course was complicated with headache for which she received a blood patch early. She also gradually improved over time and on discharge, her headache had almost completely resolved. She was given caffeine as well as encouraged to increase the salt in her intake. She responded well to Toradol 10 mg p.o. She was sent home on the with instructions to followup in 1 and 6 weeks. DISCHARGE MEDICATIONS 1. Toradol 10 mg. 2. Motrin 800 mg, which she will start after she finished her Toradol. 3. Colace. She was instructed regarding contraception as well as infection. ADDY
== END 2017-05-27 10:40 | disposition home or self-care (01) | DRG 775 ==
LOC: WFO 11:27 → FBP 11:29 → WFO 12:48 → FBP 12:49 → OBSVTOIN 19:35
PROVIDERS: ADMIT Obstetrics & Gynecology; ATTEND Obstetrics & Gynecology
PROC: 10E0XZZ Delivery of Products of Conception, External Approach (ICD-10-PCS; principal; 2017-05-24)
PROC: 10907ZC Drainage of Amniotic Fluid, Therapeutic from Products of Conception, Via Natural or Artificial Opening (ICD-10-PCS; 2017-05-24)
PROC: 3E0R3GC Introduction of Other Therapeutic Substance into Spinal Canal, Percutaneous Approach (ICD-10-PCS; 2017-05-24)
DX: O13.4 Gestational [pregnancy-induced] hypertension without significant proteinuria, complicating childbirth (principal); O76 Abnormality in fetal heart rate and rhythm complicating labor and delivery; O77.0 Labor and delivery complicated by meconium in amniotic fluid; G97.1 Other reaction to spinal and lumbar puncture; I95.9 Hypotension, unspecified; Y84.4 Aspiration of fluid as the cause of abnormal reaction of the patient, or of later complication, without mention of misadventure at the time of the procedure; Y92.239 Unspecified place in hospital as the place of occurrence of the external cause; O69.81X0 Labor and delivery complicated by cord around neck, without compression, not applicable or unspecified; Z62.819 Personal history of unspecified abuse in childhood; Z37.0 Single live birth; Z3A.37 37 weeks gestation of pregnancy; Z86.59 Personal history of other mental and behavioral disorders
CPT/HCPCS: 36415; 51701; 59200; 80076; 80306; 82570; 83880; 84156; 85025; 88307; 96361; 96365; 96375; 99213

== ENCOUNTER 2017-06-07 11:12 | Day surgery (SDC) | payer BC, MEDICAID ==
[2017-06-07] MEDS ORDERED: SODIUM CHLORIDE FLUSH 0.9% 10 ML SYRINGE IVP ONE ×2 (11:26→11:52)
[2017-06-07 11:39] VITALS: BP 128/70
== END 2017-06-07 11:13 | disposition home or self-care (01) ==
LOC: SDS 11:12
PROVIDERS: ATTEND Nurse Anesthetist, Certified Registered
PROC: 3E0S3GC Introduction of Other Therapeutic Substance into Epidural Space, Percutaneous Approach (ICD-10-PCS; principal; 2017-06-07 10:00)
DX: G97.1 Other reaction to spinal and lumbar puncture (principal)

== ENCOUNTER 2019-10-06 13:15 | Outpatient (CLI) | payer OTHER, MEDICAID | END 2019-10-06 13:16 | disposition home or self-care (01) | LOC: COV 13:15 | PROVIDERS: ATTEND Family Medicine | DX: R05 Cough (principal); R50.9 Fever, unspecified | CPT/HCPCS: 81599 ==

== ENCOUNTER 2020-08-29 07:00 | Outpatient (CLI) | payer BC, MEDICAID | END 2020-08-29 23:59 | disposition home or self-care (01) | LOC: COV 07:00 | PROVIDERS: ATTEND Family Medicine | DX: R50.9 Fever, unspecified (principal); R05 Cough; R06.02 Shortness of breath; M79.10 Myalgia, unspecified site; R09.81 Nasal congestion; Z20.822 Contact with and (suspected) exposure to COVID-19 ==

== ENCOUNTER 2021-12-12 08:30 | Emergency (ER) | payer BC, MEDICAID ==
[2021-12-12] MEDS ORDERED: KETOROLAC 30 MG/ML VIAL IVP STA (09:57)
[2021-12-12] MEDS ORDERED: DEXAMETHASONE 10 MG/ML VIAL IVP STA (09:57)
[2021-12-12] MEDS ORDERED: cefTRIAXone 1 GM in SODIUM CHLORIDE 0.9% MINIBAG 100 ML IV STA (09:57)
[2021-12-12] MEDS ORDERED: SODIUM CHLORIDE 0.9% 1,000 ML IV STA (09:57)
--- NOTE | 2021-12-12 10:01 | ED Physician Documentation ---
PD HPI URI - Stated complaint Stated Complaint: HEAD/CHEST PAIN, CONGESTION - Chief complaint Chief Complaint: General - History obtained from History obtained from: Patient - History of Present Illness Timing - onset: How many days ago (16) Timing duration: Days (16) Timing details: Gradual onset, Still present Associated symptoms: Ear pain, Nasal congestion, Rhinorrhea, Sore throat, Dry cough, Dyspnea Improves by: Rest, Medication, MDI/nebulizer Worsened by: Activity Similar symptoms before: Has not had sx before Recently seen: Not recently seen - Additional information Additional information: Previously well 26-year-old female has developed a cough and congestion 16 days ago and this has progressed. She reports negative covid tests. She has bright yellow discharge from the nose, ear pain, headache, dyspnea, aches, vomiting and dark color to urine. Review of Systems Constitutional: reports: Myalgias, Fatigue. denies: Fever Eyes: denies: Decreased vision Ears: reports: Ear pain Nose: reports: Rhinorrhea / runny nose, Congestion Throat: reports: Sore throat Cardiac: denies: Chest pain / pressure, Palpitations Respiratory: reports: Dyspnea, Cough GI: reports: Vomiting. 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 INSTRUCTOR: Miscarriage(s) : Incontinence, Frequency HEENT: Chronic vision loss Psych: Post traumatic stress disorder Musculoskeletal: Osteoarthritis Derm: None - Past Surgical History Past Surgical History: Yes General: Appendectomy Ortho: Other - Present Medications Home Medications: Ambulatory Orders Medication Instructions Recorded Confirmed Amox/Clav 875/125 [Augmentin] 1 each PO Q12H #20 tablet 12/12/21 Azithromycin [Zithromax] 250 mg PO DAILY #6 tablet 12/12/21 Buspirone HCl 7.5 mg PO BID PRN 12/12/21 12/12/21 HYDROcod/ACETAM 5/325 [[place] 5/325] 1 - 2 tablet PO Q6H PRN #14 tablet 12/12/21 Lurasidone HCl [Latuda] 0 mg PO DAILY 12/12/21 12/12/21 lamoTRIgine [Lamictal] 150 mg PO DAILY 12/12/21 12/12/21 - Allergies Allergies/Adverse Reactions: Allergies Allergy/AdvReac Type Severity Reaction Status Date / Time metoclopramide HCl * Allergy Unknown Verified 12/12/21 08:42 [From Reglan] - Social History Does the pt smoke?: No Smoking Status: Never smoker Does the pt drink ETOH?: No Does the pt have substance abuse?: No - Immunizations Immunizations are current?: Yes - POLST Patient has POLST: No PD ED PE NORMAL - Vitals Vital signs reviewed: Yes (hypertensive mild ) - General General: Alert and oriented X 3, No acute distress, Well developed/nourished - HEENT HEENT: Atraumatic, PERRL, EOMI, Pharynx benign, Other (left TM is inflamed with loss of landmarks. right is not visible secondary to cerumen. dry mucous membranes) - Neck Neck: Supple, no meningeal sign, No bony TTP - Cardiac Cardiac: RRR, No murmur - Respiratory Respiratory: No respiratory distress, Other (left base rhonchi) - Abdomen Abdomen: Soft, Non tender - Back Back: No CVA TTP, No spinal TTP - Derm Derm: Normal color, Warm and dry, No rash - Extremities Extremities: No deformity, No edema - Neuro Neuro: Alert and oriented X 3, union organizer 2-12 intact, No motor deficit, No sensory deficit, Normal speech Eye Opening: Spontaneous Motor: Obeys Commands Verbal: Oriented GCS Score: 15 - Psych Psych: Normal mood, Normal affect Results - Vitals Vitals: Vital Signs - 24 hr 12/12/21 12/12/21 08:45 09:57 Temperature 36.4 C L Heart Rate 93 64 Respiratory 18 16 Rate Blood Pressure 138/84 H 131/70 H O2 Saturation 100 99 Oxygen O2 Source Room air - Labs Labs: Laboratory Tests 12/12/21 12/12/21 12/12/21 09:45 09:45 09:55 WBC 8.6 RBC 4.48 Hgb 13.8 Hct 41.0 MCV 91.5 MCH 30.8 MCHC 33.7 RDW 13.0 Plt Count 280 MPV 9.6 Neut # (Auto) 6.9 H Lymph # (Auto) 1.0 L [place] # (Auto) 0.6 Eos # (Auto) 0.0 Baso # (Auto) 0.0 Absolute Nucleated RBC 0.00 Nucleated RBC % 0.0 Sodium 138 Potassium 4.0 Chloride 106 Carbon Dioxide 22 Anion Gap 10.0 BUN 15 Creatinine 0.9 Estimated GFR (MDRD) 76 L Glucose 101 H Lactic Acid Calcium 9.2 Total Bilirubin 0.7 AST 23 ALT 29 Alkaline Phosphatase 126 H Total Protein 7.3 Albumin 3.5 Globulin 3.8 Albumin/Globulin Ratio 0.9 L Lipase 25 Urine Color DARK YELLOW Urine Clarity CLEAR Urine pH 5.5 Ur Specific [place] >=1.030 H Urine Protein >=300 H Urine Glucose (UA) NEGATIVE Urine Ketones TRACE Urine Occult Blood NEGATIVE Urine Nitrite NEGATIVE Urine Bilirubin NEGATIVE Urine Urobilinogen 1 (NORMAL) Ur Leukocyte Esterase NEGATIVE Urine RBC 0-5 Urine WBC 0-3 Ur Squamous Epith Cells FEW Squamous Urine Bacteria Few Urine Mucus Few Strands Ur Microscopic Review INDICATED Urine Culture Comments NOT INDICATED Urine HCG, Qual NEGATIVE 12/12/21 10:01 WBC RBC Hgb Hct MCV MCH MCHC RDW Plt Count MPV Neut # (Auto) Lymph # (Auto) [place] # (Auto) Eos # (Auto) Baso # (Auto) Absolute Nucleated RBC Nucleated RBC % Sodium Potassium Chloride Carbon Dioxide Anion Gap BUN Creatinine Estimated GFR (MDRD) Glucose Lactic Acid 0.5 Calcium Total Bilirubin AST ALT Alkaline Phosphatase Total Protein Albumin Globulin Albumin/Globulin Ratio Lipase Urine Color Urine Clarity Urine pH Ur Specific [place] Urine Protein Urine Glucose (UA) Urine Ketones Urine Occult Blood Urine Nitrite Urine Bilirubin Urine Urobilinogen Ur Leukocyte Esterase Urine RBC Urine WBC Ur Squamous Epith Cells Urine Bacteria Urine Mucus Ur Microscopic Review Urine Culture Comments Urine HCG, Qual - Rads (name of study) chest Radiology: Prelim report reviewed (Impression: Right basilar airspace opacity which may represent atelectasis versus developing airspace disease/pneumonia. Recommend and to follow-up chest X radiograph 4 to 6 weeks after treatment to document resolution of findings and or return to baseline exam.), EMP read indepedently, See rad report PD MEDICAL DECISION MAKING - ED course Complexity details: reviewed old records, reviewed results, re-evaluated patient, considered differential, d/w patient, d/w family ED course: 26-year-old female with URI progressing has otitis on exam she has some rhonchi in the left base and she appears significantly dehydrated. An IV is placed and she is given intravenous saline deck of the dexamethasone Rocephin and Toradol. A chest x-ray is obtained. Departure - Departure Disposition: Home, Self Care Clinical Impression: Dehydration Pneumonia Qualifiers: Pneumonia type: due to unspecified organism Laterality: right Lung location: lower lobe of lung Qualified Code(s): J18.9 - Pneumonia, unspecified organism Otitis media Qualifiers: Otitis media type: suppurative Chronicity: acute Laterality: unspecified laterality Recurrence: non-recurrent Spontaneous tympanic membrane rupture: without spontaneous rupture Qualified Code(s): H66.009 - Acute suppurative otitis media without spontaneous rupture of ear drum, unspecified ear Condition: Stable Instructions: ED Dehydration, ED Otitis Media Acute Adult, ED Pneumonia Adult Follow-Up: SHANTELL WILDE ARNP [Primary Care Provider] - Prescriptions: Amox/Clav 875/125 [Augmentin] 1 each PO Q12H #20 tablet HYDROcod/ACETAM 5/325 [[place] 5/325] 1 - 2 tablet PO Q6H PRN #14 tablet PRN Reason: Pain Azithromycin [Zithromax] 250 mg PO DAILY #6 tablet Comments: Lillian, today it looks like you have pneumonia as well as a middle ear infection. The recommendation is to take the antibiotics as prescribed, be certain to hydrate excessively and use Tylenol or Advil for control of pain and fever. Our expectations with treatment is improvement day by day. Your medications have been E scribed to the community pharmacy here in [place].
[2021-12-12 10:04] LABS: GLUCOSE, URINE (UA) NEGATIVE (NEGATIVE); KETONES,URINE (UA) TRACE mg/dL (NEGATIVE); LEUKOCYTE ESTERASE, URINE NEGATIVE (NEGATIVE); NITRITE,URINE NEGATIVE (NEGATIVE); OCCULT BLOOD,URINE NEGATIVE (NEGATIVE); PH,URINE 5.5 PH (5.0-7.5); PROTEIN,URINE >=300 mg/dL (NEGATIVE); UROBILINOGEN,URINE 1 (NORMAL) E.U./dL (NORMAL)
[2021-12-12 10:06] LABS: BASOPHILS % (AUTO) 0.2 %; EOSINOPHILS % (AUTO) 0.2 %; HGB - HEMOGLOBIN 13.8 g/dL (12.0-16.0); LYMPHOCYTES % (AUTO) 11.3 %; MEAN CORPUSCULAR HEMOGLOBIN 30.8 pg (27.0-31.0); MEAN CORPUSCULAR HGB CONC 33.7 g/dL (32.0-36.0); MEAN CORPUSCULAR VOLUME 91.5 fL (81.0-99.0); MEAN PLATELET VOLUME 9.6 fL (7.9-10.8); MONOCYTES # (AUTO) 0.6 10^3/uL (0.0-1.0); MONOCYTES % (AUTO) 7.2 %; NEUTROPHILS # (AUTO) 6.9 10^3/uL (1.5-6.6); NEUTROPHILS % (AUTO) 80.9 %; PLT - PLATELET COUNT 280 10^3/uL (130-450); RED BLOOD COUNT 4.48 10^6/uL (4.20-5.40); WHITE BLOOD COUNT 8.6 x10^3/uL (4.8-10.8)
[2021-12-12 10:08] LABS: BILIRUBIN,URINE NEGATIVE (NEGATIVE); CLARITY,URINE CLEAR (CLEAR); HCG UR QUAL NEGATIVE; ICTOTEST,URINE NEGATIVE
[2021-12-12 10:20] LABS: ALBUMIN 3.5 g/dL (3.2-5.5); ALBUMIN/GLOBULIN RATIO 0.9 (1.0-2.2); BILIRUBIN,TOTAL 0.7 mg/dL (0.2-1.0); CALCIUM 9.2 mg/dL (8.5-10.3); CREATININE 0.9 mg/dL (0.4-1.0); TOTAL PROTEIN 7.3 g/dL (6.7-8.2)
[2021-12-12 10:21] LABS: BACTERIA,URINE Few /HPF (None Seen); MUCUS,URINE Few Strands; RBC,URINE 0-5 /HPF (0-5); SQUAMOUS EPITHELIAL CELL,UR FEW Squamous (<= Few); WBC,URINE 0-3 /HPF (0-5)
--- NOTE | 2021-12-12 10:27 | XRAY Report ---
PROCEDURE: Chest 1 View X-Ray INDICATIONS: chest pain TECHNIQUE: One view of the chest was acquired. COMPARISON: None FINDINGS: Surgical changes and devices: None. Lungs and pleura: No pleural effusions or pneumothorax. Patchy ill-defined right basilar airspace op acity. Mediastinum: Mediastinal contours appear normal. Heart size is normal. Bones and chest wall: No suspicious bony lesions. Overlying soft tissues appear unremarkable. IMPRESSION: Right basilar airspace opacity which may represent atelectasis versus developing airspace disease/pne umonia. Recommend follow-up chest radiograph 4-6 weeks after treatment to document resolution of findings and /or return to baseline exam. Reviewed by: Jabari Benitez MD on 12/12/2021 10:26 AM PDT Approved by: Jabari Benitez MD on 12/12/2021 10:26 AM PDT Station ID: [id number]
[2021-12-12 11:21] VITALS: BP 114/71
== END 2021-12-12 11:34 | disposition home or self-care (01) ==
LOC: ED 08:30
DX: E86.0 Dehydration (principal); J18.9 Pneumonia, unspecified organism; H66.009 Acute suppurative otitis media without spontaneous rupture of ear drum, unspecified ear
CPT/HCPCS: 36415; 80053; 81001; 81003; 81025; 83605; 83690; 85025; 87086; 96361; 96365; 96375; 99284

== ENCOUNTER 2022-11-19 21:30 | Emergency (ER) | payer BC, MEDICAID ==
[2022-11-19 21:40] VITALS: BP 145/78
--- OUTSIDE RECORDS SUMMARY | 2022-11-19 21:44 | EXTERNAL MEDICAL SUMMARY RPT | Continuity of Care Document ---
:1995 Author Organization [place] Address [address] [place] [address] Phone Care Team Providers Name Role Phone [place] sam Unavailable Unavailable Allergies No information. Encounters No information. Functional Status No information. Immunizations No information. Medications No information. Problems No information. Procedures No information. Results/Labs test date author facility value unit interpret ation Result panel 1 (unknown) (no date) (unknown[facility] Result panel 2 (unknown) (no date) (unknown[facility]) Result panel 3 (unknown) (no date) (unknown[facility]) Result panel 4 (unknown) (no date) (unknown[facility]) Result panel 5 (unknown) (no date) (unknown[facility]) Result panel 6 (unknown) (no date) (unknown[facility]) Result panel 7 (unknown) (no date) (unknown[facility]) Result panel 8 (unknown) (no date) (unknown[facility]) Result panel 9 (unknown) (no date) (unknown[facility]) Result panel 10 (unknown) (no date) (unknown[facility]) Result panel 11 (unknown) (no date) (unknown) [facility]) Result panel 12 (unknown) (no date) (unknown) [facility]) Result panel 13 (unknown) (no date) (unknown) [facility]) Result panel 14 (unknown) (no date) (unknown[facility]) Result panel 15 (unknown) (no date) (unknown[facility]) Result panel 16 (unknown) (no date) (unknown[facility]) Result panel 17 (unknown) (no date) (unknown[facility]) Result panel 18 (unknown) (no date) (unknown) [facility]) Result panel 19 (unknown) (no date) (unknown[facility]) Result panel 20 (unknown) (no date) (unknown) [facility]) Result panel 21 (unknown) (no date) (unknown) [facility]) Result panel 22 (unknown) (no date) (unknown) [facility]) Result panel 23 (unknown) (no date) (unknown[facility]) Result panel 24 (unknown) (no date) (unknown) [facility]) Result panel 25 (unknown) (no date) (unknown) [facility]) Result panel 26 (unknown) (no date) (unknown) [facility]) Result panel 27 (unknown) (no date) (unknown) [facility]) Result panel 28 (unknown) (no date) (unknown) [facility]) Result panel 29 (unknown) (no date) (unknown[facility]) Result panel 30 (unknown) (no date) (unknown) [facility]) Result panel 31 (unknown) (no date) (unknown) [facility]) Result panel 32 (unknown) (no date) (unknown) [facility]) Result panel 33 (unknown) (no date) (unknown) [facility]) Result panel 34 (unknown) (no date) (unknown) [facility]) Result panel 35 (unknown) (no date) (unknown) [facility]) Result panel 36 (unknown) (no date) (unknown) [facility]) Result panel 37 (unknown) (no date) (unknown) [facility]) Result panel 38 (unknown) (no date) (unknown) [facility]) Result panel 39 (unknown) (no date) (unknown) [facility]) Result panel 40 (unknown) (no date) (unknown) [facility]) Result panel 41 (unknown) (no date) (unknown) [facility]) Result panel 42 (unknown) (no date) (unknown) [facility]) Result panel 43 (unknown) (no date) (unknown) [facility]) Result panel 44 (unknown) (no date) (unknown) [facility]) Result panel 45 (unknown) (no date) (unknown) [facility]) Result panel 46 (unknown) (no date) (unknown) [facility]) Result panel 47 (unknown) (no date) (unknown) [facility]) Result panel 48 (unknown) (no date) (unknown) [facility]) Result panel 49 (unknown) (no date) (unknown) [facility]) Result panel 50 (unknown) (no date) (unknown) [facility]) Result panel 51 (unknown) (no date) (unknown) [facility]) Result panel 52 (unknown) (no date) (unknown) [facility]) Result panel 53 (unknown) (no date) (unknown) [facility]) Result panel 54 (unknown) (no date) (unknown) [facility]) Result panel 55 (unknown) (no date) (unknown) [facility]) Result panel 56 (unknown) (no date) (unknown) [facility]) Result panel 57 (unknown) (no date) (unknown) [facility]) Result panel 58 (unknown) (no date) (unknown) [facility]) Result panel 59 (unknown) (no date) (unknown) [facility]) Result panel 60 (unknown) (no date) (unknown) [facility]) Result panel 61 (unknown) (no date) (unknown) [facility]) Result panel 62 (unknown) (no date) (unknown) [facility]) Result panel 63 (unknown) (no date) (unknown) [facility]) Result panel 64 (unknown) (no date) (unknown) [facility]) Result panel 65 (unknown) (no date) (unknown) [facility]) Result panel 66 (unknown) (no date) (unknown) [facility]) Result panel 67 (unknown) (no date) (unknown) [facility]) Result panel 68 (unknown) (no date) (unknown) [facility]) Result panel 69 (unknown) (no date) (unknown) [facility]) Result panel 70 (unknown) (no date) (unknown) [facility]) Result panel 71 (unknown) (no date) (unknown) [facility]) Result panel 72 (unknown) (no date) (unknown) [facility]) Result panel 73 (unknown) (no date) (unknown) [facility]) Result panel 74 (unknown) (no date) (unknown) [facility]) Result panel 75 (unknown) (no date) (unknown) [facility]) Result panel 76 (unknown) (no date) (unknown) [facility]) Result panel 77 (unknown) (no date) (unknown) [facility]) Result panel 78 (unknown) (no date) (unknown) [facility]) Result panel 79 (unknown) (no date) (unknown) [facility]) Result panel 80 (unknown) (no date) (unknown) [facility]) Result panel 81 (unknown) (no date) (unknown) [facility]) Result panel 82 (unknown) (no date) (unknown) [facility]) Result panel 83 (unknown) (no date) (unknown) [facility]) Result panel 84 (unknown) (no date) (unknown) [facility]) Result panel 85 (unknown) (no date) (unknown) [facility]) Result panel 86 (unknown) (no date) (unknown) [facility]) Result panel 87 (unknown) (no date) (unknown) [facility]) Result panel 88 (unknown) (no date) (unknown) [facility]) Result panel 89 (unknown) (no date) (unknown[facility]) Result panel 90 (unknown) (no date) (unknown[facility]) Result panel 91 (unknown) (no date) (unknown) [facility]) Result panel 92 (unknown) (no date) (unknown) [facility]) Result panel 93 (unknown) (no date) (unknown[facility]) Result panel 94 (unknown) (no date) (unknown[facility]) Result panel 95 (unknown) (no date) (unknown[facility]) Result panel 96 (unknown) (no date) (unknown) [facility]) Result panel 97 (unknown) (no date) (unknown) [facility]) Result panel 98 (unknown) (no date) (unknown) [facility]) Result panel 99 (unknown) (no date) (unknown[facility]) Result panel 100 (unknown) (no date) (unknown[facility]) Result panel 101 (unknown) (no date) (unknown[facility]) Result panel 102 (unknown) (no date) (unknown[facility]) Result panel 103 (unknown) (no date) (unknown[facility]) Result panel 104 (unknown) (no date) (unknown[facility]) Result panel 105 (unknown) (no date) (unknown[facility]) Result panel 106 (unknown) (no date) (unknown) [facility]) Result panel 107 (unknown) (no date) (unknown) [facility]) Result panel 108 (unknown) (no date) (unknown[facility]) Result panel 109 (unknown) (no date) (unknown[facility]) Result panel 110 (unknown) (no date) (unknown) [facility]) Result panel 111 (unknown) (no date) (unknown) [facility]) Result panel 112 (unknown) (no date) (unknown) [facility]) Result panel 113 (unknown) (no date) (unknown) [facility]) Result panel 114 (unknown) (no date) (unknown[facility]) Result panel 115 (unknown) (no date) (unknown) [facility]) Result panel 116 (unknown) (no date) (unknown) [facility]) Result panel 117 (unknown) (no (unknown) (unknown) (no value) (units (unk nown) date) unknown) (unknown) (no (unknown) (unknown) 09/28/22 (units (unkno wn) date) unknown) (unknown) (no (unknown) (unknown) 10:47) (units (unkno wn) date) unknown) (unknown) (no (unknown) (unknown) 27 yo female (units (u nknown) date) presents today as unknown) a [facility] est care, hx of premature , abnormal (unknown) (no (unknown) (unknown) [id number] (units (unkno wn) date) unknown) (unknown) (no (unknown) (unknown) Abnormal Pap (units (u nknown) date) smear of cervix unknown) (2017) (unknown) (no (unknown) (unknown) Age/Sex: 27 / F (units (unknown) date) Date of Service: unknown) (unknown) (no (unknown) (unknown) Allergies (units (unkn own) date) unknown) (unknown) (no (unknown) (unknown) [place], [place] (units ( unknown) date) [id number] unknown) (unknown) (no (unknown) (unknown) Attending Dr: (units ( unknown) date) Froy Castellanos unknown) D.O. 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 unknown) (unknown) (no (unknown) (unknown) Documented By: (units (unknown) date) Froy Castellanos unknown) D.O. 09/28/22 1023 (unknown) (no (unknown) (unknown) Draft (units (unkno wn) date) unknown) (unknown) (no (unknown) (unknown) Family History (units (unknown) date) (Reviewed unknown) 12/26/18 @ 02:31 by Jayce Stephens DO) (unknown) (no (unknown) (unknown) Family Practice (units (unknown) date) Office Visit unknown) (unknown) (no (unknown) (unknown) Father Cancer (units ( unknown) date) unknown) (unknown) (no (unknown) (unknown) Fatigue (units (unkno wn) date) unknown) (unknown) (no (unknown) (unknown) [facility] unknown) (unknown) (no (unknown) (unknown) Grandfather (units (un known) date) No unknown) problems noted. (unknown) (no (unknown) (unknown) Grandmother (units (un known) date) Cancer unknown) (unknown) (no (unknown) (unknown) Grandmother (units (un known) date) Prediabetes unknown) (unknown) (no (unknown) (unknown) Hair loss (units (unkn own) date) unknown) (unknown) (no (unknown) (unknown) Heart disease (units ( unknown) date) unknown) (unknown) (no (unknown) (unknown) Heart racing, (units ( unknown) date) feeling angry. unknown) (unknown) (no (unknown) (unknown) Hx of (units (unkno wn) date) appendectomy unknown) (2004) (unknown) (no (unknown) (unknown) Hx of knee (units (unk nown) date) surgery (-2009) unknown) (unknown) (no (unknown) (unknown) Hypothyroidism (units (unknown) date) (2009) unknown) (unknown) (no (unknown) (unknown) Intake Note: (units (u nknown) date) unknown) (unknown) (no (unknown) (unknown) Intake performed (units (unknown) date) by: Darlene Hauser unknown) (unknown) (no (unknown) (unknown) Intake (units (unkno wn) date) unknown) (unknown) (no (unknown) (unknown) Intake- Clincial (units (unknown) date) Staff unknown) (unknown) (no (unknown) (unknown) Joint pain (units (unk nown) date) (-1997) unknown) (unknown) (no (unknown) (unknown) Last Menstural (units (unknown) date) Cycle + Details unknown) (unknown) (no (unknown) (unknown) [facility]: [facility] (units (unkno wn) date) unknown) (unknown) (no (unknown) (unknown) Medical History (units (unknown) date) (Updated 05/02/21 unknown) @ 11:08 by KALPANA White) (unknown) (no (unknown) (unknown) Migraines (2016) (units (unknown) date) unknown) (unknown) (no (unknown) (unknown) Mother (units (unkno wn) date) Hypothyroidism unknown) (unknown) (no (unknown) (unknown) Myalgia (units (unkno wn) date) unknown) (unknown) (no (unknown) (unknown) Other Menstrual (units (unknown) date) Period: Other unknown) (Mirena) (unknown) (no (unknown) (unknown) PFSH (units (unkno wn) date) unknown) (unknown) (no (unknown) (unknown) PTSD (units (unkno wn) date) (post-traumatic unknown) stress disorder) (2007) (unknown) (no (unknown) (unknown) Patient: (units (unkno wn) date) Lillian Dorman unknown) MR#: [id number] (unknown) (no (unknown) (unknown) Proteinuria (units (un known) date) () unknown) (unknown) (no (unknown) (unknown) Reason For Visit (units (unknown) date) unknown) (unknown) (no (unknown) (unknown) Rheumatoid (units (unk nown) date) arthritis (2009) unknown) (unknown) (no (unknown) (unknown) Scoliosis (units (unkn own) date) () unknown) (unknown) (no (unknown) (unknown) Signed By: (units (unk nown) date) unknown) (unknown) (no (unknown) (unknown) Smoking Status: (units (unknown) date) Never smoker unknown) (unknown) (no (unknown) (unknown) Surgical History (units (unknown) date) (Reviewed unknown) 05/28/18 @ 21:36 by KALPANA Humphries) (unknown) (no (unknown) (unknown) This note may (units ( unknown) date) have been all or unknown) partially generated using voice recognition (unknown) (no (unknown) (unknown) Tobacco + (units (unkn own) date) Substance Use unknown) (unknown) (no (unknown) (unknown) Tobacco Status (units (unknown) date) unknown) (unknown) (no (unknown) (unknown) Visit Reasons: (units (unknown) date) [facility], hospital unknown) f/u: premature , abnormal labs (unknown) (no (unknown) (unknown) alcohol intake: (units (unknown) date) never unknown) (unknown) (no (unknown) (unknown) have occurred. (units (unknown) date) If there are any unknown) questions, please contact the Medical Records (unknown) (no (unknown) (unknown) labs. (units (unkno wn) date) unknown) (unknown) (no (unknown) (unknown) may occur. (units (unk nown) date) Occasional unknown) wrong-word or 'sound-alike' substitutions may have (unknown) (no (unknown) (unknown) metoclopramide (units (unknown) date) [From Reglan] unknown) Adverse Reaction (Intermediate, Verified 05/02/21 (unknown) (no (unknown) (unknown) occurred due to (units (unknown) date) the inherent unknown) limitations of voice recognition software. Please (unknown) (no (unknown) (unknown) read the note (units ( unknown) date) carefully and unknown) recognize, using context, where these substitutions (unknown) (no (unknown) (unknown) software. (units (unkn own) date) Although every unknown) effort is made to edit content, nurse errors (unknown) (no (unknown) (unknown) substance use (units ( unknown) date) type: does not unknown) use Result panel 118 (unknown) (no (unknown) (unknown) (no value) (units (unk nown) date) unknown) (unknown) (no (unknown) (unknown) 0 /ul (unkno wn) date) (unknown) (no (unknown) (unknown) 0.4 % (unkno wn) date) (unknown) (no (unknown) (unknown) 0.8 % (unkno wn) date) (unknown) (no (unknown) (unknown) 09/28/22 (units (unkno wn) date) unknown) (unknown) (no (unknown) (unknown) 100 /ul (unkno wn) date) (unknown) (no (unknown) (unknown) 10:47) (units (unkno wn) date) unknown) (unknown) (no (unknown) (unknown) 1100 /ul (unkno wn) date) (unknown) (no (unknown) (unknown) 12.5 g/dl (unkno wn) date) (unknown) (no (unknown) (unknown) 16.1 % (unkno wn) date) (unknown) (no (unknown) (unknown) 16.4 % (unkno wn) date) (unknown) (no (unknown) (unknown) 27 yo female (units (u nknown) date) presents today as unknown) a [facility] care, hx of premature , abnormal (unknown) (no (unknown) (unknown) 27.3 pg (unkno wn) date) (unknown) (no (unknown) (unknown) 277 x10 3/ul (unkno wn) date) (unknown) (no (unknown) (unknown) 32.4 % (unkno wn) date) (unknown) (no (unknown) (unknown) [id number] (units (unkno wn) date) unknown) (unknown) (no (unknown) (unknown) 38.7 % (unkno wn) date) (unknown) (no (unknown) (unknown) 4.58 x10 6/ul (unkno wn) date) (unknown) (no (unknown) (unknown) 400 /ul (unkno wn) date) (unknown) (no (unknown) (unknown) 5.3 % (unkno wn) date) (unknown) (no (unknown) (unknown) 5300 /ul (unkno wn) date) (unknown) (no (unknown) (unknown) 6.8 x10 3/ul (unkno wn) date) (unknown) (no (unknown) (unknown) 77.4 % (unkno wn) date) (unknown) (no (unknown) (unknown) 84.5 fl (unkno wn) date) (unknown) (no (unknown) (unknown) Abnormal Pap (units (u nknown) date) smear of cervix unknown) (2017) (unknown) (no (unknown) (unknown) Age/Sex: 27 / F (units (unknown) date) Date of Service: unknown) (unknown) (no (unknown) (unknown) Allergies (units (unkn own) date) unknown) (unknown) (no (unknown) (unknown) [place], [place] (units ( unknown) date) [id number] unknown) (unknown) (no (unknown) (unknown) Attending Dr: (units ( unknown) date) Froy Castellanos unknown) D.O. (unknown) (no (unknown) (unknown) Brittle nails (units ( unknown) date) unknown) (unknown) (no (unknown) (unknown) Congenital knee (units (unknown) date) joint deformity unknown) (unknown) (no (unknown) (unknown) : 1995 (units (unknown) date) Acct:[id number] unknown) (unknown) (no (unknown) (unknown) Depression (units (unk nown) date) (2009) unknown) (unknown) (no (unknown) (unknown) Dept at (units (unkno wn) date) . unknown) (unknown) (no (unknown) (unknown) Documented By: (units (unknown) date) Froy Castellanos unknown) D.O. 09/28/22 1023 (unknown) (no (unknown) (unknown) Draft (units (unkno wn) date) unknown) (unknown) (no (unknown) (unknown) Family History (units (unknown) date) (Reviewed unknown) 12/26/18 @ 02:31 by Jayce Stephens DO) (unknown) (no (unknown) (unknown) Family Practice (units (unknown) date) Office Visit unknown) (unknown) (no (unknown) (unknown) Father Cancer (units ( unknown) date) unknown) (unknown) (no (unknown) (unknown) Fatigue (units (unkno wn) date) unknown) (unknown) (no (unknown) (unknown) [facility] unknown) (unknown) (no (unknown) (unknown) Grandfather (units (un known) date) No unknown) problems noted. (unknown) (no (unknown) (unknown) Grandmother (units (un known) date) Cancer unknown) (unknown) (no (unknown) (unknown) Grandmother (units (un known) date) Prediabetes unknown) (unknown) (no (unknown) (unknown) Hair loss (units (unkn own) date) unknown) (unknown) (no (unknown) (unknown) Heart disease (units ( unknown) date) unknown) (unknown) (no (unknown) (unknown) Heart racing, (units ( unknown) date) feeling angry. unknown) (unknown) (no (unknown) (unknown) Hx of (units (unkno wn) date) appendectomy unknown) (2005) (unknown) (no (unknown) (unknown) Hx of knee (units (unk nown) date) surgery () unknown) (unknown) (no (unknown) (unknown) Hypothyroidism (units (unknown) date) (2008) unknown) (unknown) (no (unknown) (unknown) Intake Note: (units (u nknown) date) unknown) (unknown) (no (unknown) (unknown) Intake performed (units (unknown) date) by: Darlene Hauser unknown) (unknown) (no (unknown) (unknown) Intake (units (unkno wn) date) unknown) (unknown) (no (unknown) (unknown) Intake- Clincial (units (unknown) date) Staff unknown) (unknown) (no (unknown) (unknown) Joint pain (units (unk nown) date) () unknown) (unknown) (no (unknown) (unknown) Labs done today (units (unknown) date) 09/28/22 are unknown) pending. (unknown) (no (unknown) (unknown) Last Menstural (units (unknown) date) Cycle + Details unknown) (unknown) (no (unknown) (unknown) Loc: [facility] (units (unkno wn) date) unknown) (unknown) (no (unknown) (unknown) Medical History (units (unknown) date) (Updated 05/02/21 unknown) @ 11:08 by KALPANA White) (unknown) (no (unknown) (unknown) Migraines (2016) (units (unknown) date) unknown) (unknown) (no (unknown) (unknown) Mother (units (unkno wn) date) Hypothyroidism unknown) (unknown) (no (unknown) (unknown) Myalgia (units (unkno wn) date) unknown) (unknown) (no (unknown) (unknown) Other Menstrual (units (unknown) date) Period: Other unknown) (Mirena) (unknown) (no (unknown) (unknown) PFSH (units (unkno wn) date) unknown) (unknown) (no (unknown) (unknown) PTSD (units (unkno wn) date) (post-traumatic unknown) stress disorder) (2007) (unknown) (no (unknown) (unknown) Patient: (units (unkno wn) date) Lillian Dorman G unknown) MR#: [id number] (unknown) (no (unknown) (unknown) Proteinuria (units (un known) date) () unknown) (unknown) (no (unknown) (unknown) Reason For Visit (units (unknown) date) unknown) (unknown) (no (unknown) (unknown) Rheumatoid (units (unk nown) date) arthritis (2009) unknown) (unknown) (no (unknown) (unknown) Scoliosis (units (unkn own) date) () unknown) (unknown) (no (unknown) (unknown) Signed By: (units (unk nown) date) unknown) (unknown) (no (unknown) (unknown) Smoking Status: (units (unknown) date) Never smoker unknown) (unknown) (no (unknown) (unknown) Surgical History (units (unknown) date) (Reviewed unknown) 05/28/18 @ 21:36 by KALPANA Humphries) (unknown) (no (unknown) (unknown) This note may (units ( unknown) date) have been all or unknown) partially generated using voice recognition (unknown) (no (unknown) (unknown) Tobacco + (units (unkn own) date) Substance Use unknown) (unknown) (no (unknown) (unknown) Tobacco Status (units (unknown) date) unknown) (unknown) (no (unknown) (unknown) Visit Reasons: (units (unknown) date) [facility], hospital unknown) f/u: premature , abnormal labs (unknown) (no (unknown) (unknown) alcohol intake: (units (unknown) date) never unknown) (unknown) (no (unknown) (unknown) have occurred. (units (unknown) date) If there are any unknown) questions, please contact the Medical Records (unknown) (no (unknown) (unknown) labs. (units (unkno wn) date) unknown) (unknown) (no (unknown) (unknown) may occur. (units (unk nown) date) Occasional unknown) wrong-word or 'sound-alike' substitutions may have (unknown) (no (unknown) (unknown) metoclopramide (units (unknown) date) [From Reglan] unknown) Adverse Reaction (Intermediate, Verified 05/02/21 (unknown) (no (unknown) (unknown) occurred due to (units (unknown) date) the inherent unknown) limitations of voice recognition software. Please (unknown) (no (unknown) (unknown) read the note (units ( unknown) date) carefully and unknown) recognize, using context, where these substitutions (unknown) (no (unknown) (unknown) software. (units (unkn own) date) Although every unknown) effort is made to edit content, nurse errors (unknown) (no (unknown) (unknown) substance use (units ( unknown) date) type: does not unknown) use Result panel 119 (unknown) (no date) (unknown) (unknown) < 9 umol/l (unkn own) Result panel 120 (unknown) (no (unknown) (unknown) (no value) (units (unk nown) date) unknown) (unknown) (no (unknown) (unknown) 09/28/22 (units (unkno wn) date) unknown) (unknown) (no (unknown) (unknown) 10:51) (units (unkno wn) date) unknown) (unknown) (no (unknown) (unknown) 10:52 (units (unkno wn) date) unknown) (unknown) (no (unknown) (unknown) 27 yo female (units (u nknown) date) presents today as unknown) a [facility], history of to baby boy, (unknown) (no (unknown) (unknown) [id number] (units (unkno wn) date) unknown) (unknown) (no (unknown) (unknown) Abnormal Pap (units (u nknown) date) smear of cervix unknown) (2017) (unknown) (no (unknown) (unknown) Age/Sex: 27 / F (units (unknown) date) Date of Service: unknown) (unknown) (no (unknown) (unknown) Allergies (units (unkn own) date) unknown) (unknown) (no (unknown) (unknown) Иван, MARCELO (units ( unknown) date) [id number] unknown) (unknown) (no (unknown) (unknown) Attending Dr: (units ( unknown) date) Froy Castellanos unknown) D.O. 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 unknown) (unknown) (no (unknown) (unknown) Documented By: (units (unknown) date) Froy Castellanos unknown) D.O. 09/28/22 1023 (unknown) (no (unknown) (unknown) Draft (units (unkno wn) date) unknown) (unknown) (no (unknown) (unknown) Family History (units (unknown) date) (Reviewed unknown) 12/26/18 @ 02:31 by Jayce Stephens DO) (unknown) (no (unknown) (unknown) Family Practice (units (unknown) date) Office Visit unknown) (unknown) (no (unknown) (unknown) Father Cancer (units ( unknown) date) unknown) (unknown) (no (unknown) (unknown) Fatigue (units (unkno wn) date) unknown) (unknown) (no (unknown) (unknown) [facility] ([facility] unknown) (unknown) (no (unknown) (unknown) Grandfather (units (un known) date) No unknown) problems noted. (unknown) (no (unknown) (unknown) Grandmother (units (un known) date) Cancer unknown) (unknown) (no (unknown) (unknown) Grandmother (units (un known) date) Prediabetes unknown) (unknown) (no (unknown) (unknown) Hair loss (units (unkn own) date) unknown) (unknown) (no (unknown) (unknown) Health (units (unkno wn) date) Management unknown) reviewed with patient: Yes (unknown) (no (unknown) (unknown) Health (units (unkno wn) date) Management unknown) (unknown) (no (unknown) (unknown) Heart disease (units ( unknown) date) unknown) (unknown) (no (unknown) (unknown) Heart racing, (units ( unknown) date) feeling angry. unknown) (unknown) (no (unknown) (unknown) Height 5 ft 2 in (units (unknown) date) unknown) (unknown) (no (unknown) (unknown) Hx of (units (unkno wn) date) appendectomy unknown) (2004) (unknown) (no (unknown) (unknown) Hx of knee (units (unk nown) date) surgery () unknown) (unknown) (no (unknown) (unknown) Hypothyroidism (units (unknown) date) (2008) unknown) (unknown) (no (unknown) (unknown) Intake Note: (units (u nknown) date) unknown) (unknown) (no (unknown) (unknown) Intake performed (units (unknown) date) by: Darlene Hauser unknown) (unknown) (no (unknown) (unknown) Intake (units (unkno wn) date) unknown) (unknown) (no (unknown) (unknown) Intake- Clincial (units (unknown) date) Staff unknown) (unknown) (no (unknown) (unknown) Joint pain (units (unk nown) date) () unknown) (unknown) (no (unknown) (unknown) Labs done today (units (unknown) date) 09/28/22 are unknown) pending. (unknown) (no (unknown) (unknown) Last Menstural (units (unknown) date) Cycle + Details unknown) (unknown) (no (unknown) (unknown) Loc: [facility] (units (unkno wn) date) unknown) (unknown) (no (unknown) (unknown) Medical History (units (unknown) date) (Updated 05/02/21 unknown) @ 11:08 by KALPANA White) (unknown) (no (unknown) (unknown) Migraines (2016) (units (unknown) date) unknown) (unknown) (no (unknown) (unknown) Mother (units (unkno wn) date) Hypothyroidism unknown) (unknown) (no (unknown) (unknown) Myalgia (units (unkno wn) date) unknown) (unknown) (no (unknown) (unknown) Other Menstrual (units (unknown) date) Period: Other unknown) (Mirena) (unknown) (no (unknown) (unknown) Oxygen Delivery (units (unknown) date) Method room air unknown) (unknown) (no (unknown) (unknown) PFSH (units (unkno wn) date) unknown) (unknown) (no (unknown) (unknown) PTSD (units (unkno wn) date) (post-traumatic unknown) stress disorder) (2007) (unknown) (no (unknown) (unknown) Patient: (units (unkno wn) date) Lillian Dorman unknown) MR#: [id number] (unknown) (no (unknown) (unknown) Position Sitting (units (unknown) date) unknown) (unknown) (no (unknown) (unknown) Proteinuria (units (un known) date) (-2004) unknown) (unknown) (no (unknown) (unknown) Pt had a PAP (units (u nknown) date) smear in Jun 2022 unknown) at [place]. (unknown) (no (unknown) (unknown) Pt has concerns (units (unknown) date) about fatigue, unknown) constant headache and reoccurring pain in abdomen (unknown) (no (unknown) (unknown) Pt was seen at (units (unknown) date) [place] unknown) hospital June 18- July 04 for of (unknown) (no (unknown) (unknown) Pulse 61 (units (unkno wn) date) unknown) (unknown) (no (unknown) (unknown) Pulse Oximetry (units (unknown) date) (%) 99 unknown) (unknown) (no (unknown) (unknown) Pulse Source (units (u nknown) date) Monitor unknown) (unknown) (no (unknown) (unknown) Reason For Visit (units (unknown) date) unknown) (unknown) (no (unknown) (unknown) Rheumatoid (units (unk nown) date) arthritis (2009) unknown) (unknown) (no (unknown) (unknown) Scoliosis (units (unkn own) date) (-1999) unknown) (unknown) (no (unknown) (unknown) Signed By: (units (unk nown) date) unknown) (unknown) (no (unknown) (unknown) Smoking Status: (units (unknown) date) Never smoker unknown) (unknown) (no (unknown) (unknown) Surgical History (units (unknown) date) (Reviewed unknown) 05/28/18 @ 21:36 by KALPANA Humphries) (unknown) (no (unknown) (unknown) This note may (units ( unknown) date) have been all or unknown) partially generated using voice recognition (unknown) (no (unknown) (unknown) Tobacco + (units (unkn own) date) Substance Use unknown) (unknown) (no (unknown) (unknown) Tobacco Status (units (unknown) date) unknown) (unknown) (no (unknown) (unknown) Visit Reasons: (units (unknown) date) [facility], hospital unknown) f/u: premature , abnormal labs (unknown) (no (unknown) (unknown) Vitals (units (unkno wn) date) unknown) (unknown) (no (unknown) (unknown) Weight 155 lb 4 (units (unknown) date) oz unknown) (unknown) (no (unknown) (unknown) alcohol intake: (units (unknown) date) never unknown) (unknown) (no (unknown) (unknown) and back. (units (unkn own) date) unknown) (unknown) (no (unknown) (unknown) baby boy. Was (units ( unknown) date) also seen on New unknown) Years [facility] for abdominal pain and abnormal labs. (unknown) (no (unknown) (unknown) have occurred. (units (unknown) date) If there are any unknown) questions, please contact the Medical Records (unknown) (no (unknown) (unknown) may occur. (units (unk nown) date) Occasional unknown) wrong-word or 'sound-alike' substitutions may have (unknown) (no (unknown) (unknown) metoclopramide (units (unknown) date) [From Reglan] unknown) Adverse Reaction (Intermediate, Verified 09/28/22 (unknown) (no (unknown) (unknown) occurred due to (units (unknown) date) the inherent unknown) limitations of voice recognition software. Please (unknown) (no (unknown) (unknown) premature at 29 (units (unknown) date) weeks, abnormal unknown) labs. (unknown) (no (unknown) (unknown) read the note (units ( unknown) date) carefully and unknown) recognize, using context, where these substitutions (unknown) (no (unknown) (unknown) software. (units (unkn own) date) Although every unknown) effort is made to edit content, nurse errors (unknown) (no (unknown) (unknown) substance use (units ( unknown) date) type: does not unknown) use Result panel 121 (unknown) (no date) (unknown) (unknown) > 60 ml/min (unkn own) (unknown) (no date) (unknown) (unknown) > 60 ml/min (unkn own) (unknown) (no date) (unknown) (unknown) 0.77 mg/dl (unkn own) (unknown) (no date) (unknown) (unknown) 0.9 mg/dl (unkn own) (unknown) (no date) (unknown) (unknown) 1.6 (units unknown) (unknown) (unknown) (no date) (unknown) (unknown) 109 mmol/l (unkn own) (unknown) (no date) (unknown) (unknown) 11 mg/dl (unkn own) (unknown) (no date) (unknown) (unknown) 14.3 (units unknown) (unknown) (unknown) (no date) (unknown) (unknown) 140 mmol/l (unkn own) (unknown) (no date) (unknown) (unknown) 2.8 g/dl (unkn own) (unknown) (no date) (unknown) (unknown) 23 mmol/l (unkn own) (unknown) (no date) (unknown) (unknown) 27 iu/l (unkn own) (unknown) (no date) (unknown) (unknown) 28 iu/l (unkn own) (unknown) (no date) (unknown) (unknown) 4.4 g/dl (unkn own) (unknown) (no date) (unknown) (unknown) 4.4 mmol/l (unkn own) (unknown) (no date) (unknown) (unknown) 7.2 g/dl (unkn own) (unknown) (no date) (unknown) (unknown) 71 u/l (unkn own) (unknown) (no date) (unknown) (unknown) 9.2 mg/dl (unkn own) (unknown) (no date) (unknown) (unknown) 92 mg/dl (unkn own) (unknown) (no date) (unknown) (unknown) 92 mg/dl (unkn own) Result panel 122 (unknown) (no (unknown) (unknown) (no value) (units (unk nown) date) unknown) (unknown) (no (unknown) (unknown) 09/28/22 (units (unkno wn) date) unknown) (unknown) (no (unknown) (unknown) 10:51) (units (unkno wn) date) unknown) (unknown) (no (unknown) (unknown) 10:52 (units (unkno wn) date) unknown) (unknown) (no (unknown) (unknown) 27 yo female (units (u nknown) date) presents today as unknown) a NT[facility], history of to baby boy, (unknown) (no (unknown) (unknown) [id number] (units (unkno wn) date) unknown) (unknown) (no (unknown) (unknown) Abnormal Pap (units (u nknown) date) smear of cervix unknown) (2017) (unknown) (no (unknown) (unknown) Age/Sex: 27 / F (units (unknown) date) Date of Service: unknown) (unknown) (no (unknown) (unknown) Allergies (units (unkn own) date) unknown) (unknown) (no (unknown) (unknown) MARCELO Oates (units ( unknown) date) [id number] unknown) (unknown) (no (unknown) (unknown) Attending Dr: (units ( unknown) date) Froy Castellanos unknown) D.O. (unknown) (no (unknown) (unknown) BMI 28.3 (units (unkno wn) date) unknown) (unknown) (no (unknown) (unknown) BP 118/70 (units (unkn own) date) unknown) (unknown) (no (unknown) (unknown) Blood Pressure (units (unknown) date) Location Lt unknown) brachial (unknown) (no (unknown) (unknown) Brittle nails (units ( unknown) date) unknown) (unknown) (no (unknown) (unknown) Congenital knee (units (unknown) date) joint deformity unknown) (unknown) (no (unknown) (unknown) : 1995 (units (unknown) date) Acct:[id number] unknown) (unknown) (no (unknown) (unknown) Depression (units (unk nown) date) (2010) unknown) (unknown) (no (unknown) (unknown) Dept at (units (unkno wn) date) . unknown) (unknown) (no (unknown) (unknown) Documented By: (units (unknown) date) Froy Castellanos unknown) D.O. 09/28/22 1023 (unknown) (no (unknown) (unknown) Draft (units (unkno wn) date) unknown) (unknown) (no (unknown) (unknown) Family History (units (unknown) date) (Reviewed unknown) 12/26/18 @ 02:31 by Jayce Stephens DO) (unknown) (no (unknown) (unknown) Family Practice (units (unknown) date) Office Visit unknown) (unknown) (no (unknown) (unknown) Father Cancer (units ( unknown) date) unknown) (unknown) (no (unknown) (unknown) Fatigue (units (unkno wn) date) unknown) (unknown) (no (unknown) (unknown) [facility] ([facility] unknown) (unknown) (no (unknown) (unknown) Grandfather (units (un known) date) No unknown) problems noted. (unknown) (no (unknown) (unknown) Grandmother (units (un known) date) Cancer unknown) (unknown) (no (unknown) (unknown) Grandmother (units (un known) date) Prediabetes unknown) (unknown) (no (unknown) (unknown) Hair loss (units (unkn own) date) unknown) (unknown) (no (unknown) (unknown) Health (units (unkno wn) date) Management unknown) reviewed with patient: Yes (unknown) (no (unknown) (unknown) Health (units (unkno wn) date) Management unknown) (unknown) (no (unknown) (unknown) Heart disease (units ( unknown) date) unknown) (unknown) (no (unknown) (unknown) Heart racing, (units ( unknown) date) feeling angry. unknown) (unknown) (no (unknown) (unknown) Height 5 ft 2 in (units (unknown) date) unknown) (unknown) (no (unknown) (unknown) Hx of (units (unkno wn) date) appendectomy unknown) (2004) (unknown) (no (unknown) (unknown) Hx of knee (units (unk nown) date) surgery () unknown) (unknown) (no (unknown) (unknown) Hypothyroidism (units (unknown) date) (2008) unknown) (unknown) (no (unknown) (unknown) Intake Note: (units (u nknown) date) unknown) (unknown) (no (unknown) (unknown) Intake performed (units (unknown) date) by: Darlene Hauser unknown) (unknown) (no (unknown) (unknown) Intake (units (unkno wn) date) unknown) (unknown) (no (unknown) (unknown) Intake- Clincial (units (unknown) date) Staff unknown) (unknown) (no (unknown) (unknown) Joint pain (units (unk nown) date) (-1997) unknown) (unknown) (no (unknown) (unknown) Labs done today (units (unknown) date) 09/28/22 are unknown) pending. (unknown) (no (unknown) (unknown) Last Menstural (units (unknown) date) Cycle + Details unknown) (unknown) (no (unknown) (unknown) Loc: [facility] (units (unkno wn) date) unknown) (unknown) (no (unknown) (unknown) Medical History (units (unknown) date) (Updated 05/02/21 unknown) @ 11:08 by KALPANA White) (unknown) (no (unknown) (unknown) Migraines (2016) (units (unknown) date) unknown) (unknown) (no (unknown) (unknown) Mother (units (unkno wn) date) Hypothyroidism unknown) (unknown) (no (unknown) (unknown) Myalgia (units (unkno wn) date) unknown) (unknown) (no (unknown) (unknown) Other Menstrual (units (unknown) date) Period: Other unknown) (Mirena) (unknown) (no (unknown) (unknown) Oxygen Delivery (units (unknown) date) Method room air unknown) (unknown) (no (unknown) (unknown) PFSH (units (unkno wn) date) unknown) (unknown) (no (unknown) (unknown) PTSD (units (unkno wn) date) (post-traumatic unknown) stress disorder) (2007) (unknown) (no (unknown) (unknown) Patient: (units (unkno wn) date) Lillian Dorman unknown) MR#: [id number] (unknown) (no (unknown) (unknown) Position Sitting (units (unknown) date) unknown) (unknown) (no (unknown) (unknown) Proteinuria (units (un known) date) (-2004) unknown) (unknown) (no (unknown) (unknown) Pt had a PAP (units (u nknown) date) smear in Jun 2022 unknown) at [place]. (unknown) (no (unknown) (unknown) Pt has concerns (units (unknown) date) about fatigue, unknown) constant headache and reoccurring pain in abdomen (unknown) (no (unknown) (unknown) Pt was seen at (units (unknown) date) [place] unknown) hospital June 18- July 04 for of (unknown) (no (unknown) (unknown) Pulse 61 (units (unkno wn) date) unknown) (unknown) (no (unknown) (unknown) Pulse Oximetry (units (unknown) date) (%) 99 unknown) (unknown) (no (unknown) (unknown) Pulse Source (units (u nknown) date) Monitor unknown) (unknown) (no (unknown) (unknown) Reason For Visit (units (unknown) date) unknown) (unknown) (no (unknown) (unknown) Rheumatoid (units (unk nown) date) arthritis (2009) unknown) (unknown) (no (unknown) (unknown) Scoliosis (units (unkn own) date) (-1999) unknown) (unknown) (no (unknown) (unknown) Signed By: (units (unk nown) date) unknown) (unknown) (no (unknown) (unknown) Smoking Status: (units (unknown) date) Never smoker unknown) (unknown) (no (unknown) (unknown) Surgical History (units (unknown) date) (Reviewed unknown) 05/28/18 @ 21:36 by KALPANA Humphries) (unknown) (no (unknown) (unknown) This note may (units ( unknown) date) have been all or unknown) partially generated using voice recognition (unknown) (no (unknown) (unknown) Tobacco + (units (unkn own) date) Substance Use unknown) (unknown) (no (unknown) (unknown) Tobacco Status (units (unknown) date) unknown) (unknown) (no (unknown) (unknown) Visit Reasons: (units (unknown) date) [facility], hospital unknown) f/u: premature , abnormal labs (unknown) (no (unknown) (unknown) Vitals (units (unkno wn) date) unknown) (unknown) (no (unknown) (unknown) Weight 155 lb 4 (units (unknown) date) oz unknown) (unknown) (no (unknown) (unknown) alcohol intake: (units (unknown) date) never unknown) (unknown) (no (unknown) (unknown) and back. (units (unkn own) date) unknown) (unknown) (no (unknown) (unknown) baby boy. Was (units ( unknown) date) also seen on New unknown) Years [facility] for abdominal pain and abnormal labs. (unknown) (no (unknown) (unknown) have occurred. (units (unknown) date) If there are any unknown) questions, please contact the Medical Records (unknown) (no (unknown) (unknown) may occur. (units (unk nown) date) Occasional unknown) wrong-word or 'sound-alike' substitutions may have (unknown) (no (unknown) (unknown) metoclopramide (units (unknown) date) [From Reglan] unknown) Adverse Reaction (Intermediate, Verified 09/28/22 (unknown) (no (unknown) (unknown) occurred due to (units (unknown) date) the inherent unknown) limitations of voice recognition software. Please (unknown) (no (unknown) (unknown) premature at 29 (units (unknown) date) weeks, abnormal unknown) labs. (unknown) (no (unknown) (unknown) read the note (units ( unknown) date) carefully and unknown) recognize, using context, where these substitutions (unknown) (no (unknown) (unknown) software. (units (unkn own) date) Although every unknown) effort is made to edit content, nurse errors (unknown) (no (unknown) (unknown) substance use (units ( unknown) date) type: does not unknown) use Result panel 123 (unknown) (no (unknown) (unknown) (no value) (units (unk nown) date) unknown) (unknown) (no (unknown) (unknown) 09/28/22 (units (unkno wn) date) unknown) (unknown) (no (unknown) (unknown) 10:51) (units (unkno wn) date) unknown) (unknown) (no (unknown) (unknown) 10:52 (units (unkno wn) date) unknown) (unknown) (no (unknown) (unknown) 27 yo female (units (u nknown) date) presents today as unknown) a [facility], history of to baby boy, (unknown) (no (unknown) (unknown) [id number] (units (unkno wn) date) unknown) (unknown) (no (unknown) (unknown) Abnormal Pap (units (u nknown) date) smear of cervix unknown) (2017) (unknown) (no (unknown) (unknown) Age/Sex: 27 / F (units (unknown) date) Date of Service: unknown) (unknown) (no (unknown) (unknown) Allergies (units (unkn own) date) unknown) (unknown) (no (unknown) (unknown) MARCELO Oates (units ( unknown) date) [id number] unknown) (unknown) (no (unknown) (unknown) Attending Dr: (units ( unknown) date) Froy Castellanos unknown) D.O. (unknown) (no (unknown) (unknown) BMI 28.3 (units (unkno wn) date) unknown) (unknown) (no (unknown) (unknown) BP 118/70 (units (unkn own) date) unknown) (unknown) (no (unknown) (unknown) Blood Pressure (units (unknown) date) Location Lt unknown) brachial (unknown) (no (unknown) (unknown) Brittle nails (units ( unknown) date) unknown) (unknown) (no (unknown) (unknown) Congenital knee (units (unknown) date) joint deformity unknown) (unknown) (no (unknown) (unknown) : 1995 (units (unknown) date) Acct:[id number] unknown) (unknown) (no (unknown) (unknown) Depression (units (unk nown) date) (2010) unknown) (unknown) (no (unknown) (unknown) Dept at (units (unkno wn) date) . unknown) (unknown) (no (unknown) (unknown) Documented By: (units (unknown) date) Froy Castellanos unknown) D.OHermelinda 09/28/22 1023 (unknown) (no (unknown) (unknown) Draft (units (unkno wn) date) unknown) (unknown) (no (unknown) (unknown) Family History (units (unknown) date) (Reviewed unknown) 12/26/18 @ 02:31 by Jayce Stephens DO) (unknown) (no (unknown) (unknown) Family Practice (units (unknown) date) Office Visit unknown) (unknown) (no (unknown) (unknown) Father Cancer (units ( unknown) date) unknown) (unknown) (no (unknown) (unknown) Fatigue (units (unkno wn) date) unknown) (unknown) (no (unknown) (unknown) [facility] unknown) (unknown) (no (unknown) (unknown) Grandfather (units (un known) date) No unknown) problems noted. (unknown) (no (unknown) (unknown) Grandmother (units (un known) date) Cancer unknown) (unknown) (no (unknown) (unknown) Grandmother (units (un known) date) Prediabetes unknown) (unknown) (no (unknown) (unknown) Hair loss (units (unkn own) date) unknown) (unknown) (no (unknown) (unknown) Health (units (unkno wn) date) Management unknown) reviewed with patient: Yes (unknown) (no (unknown) (unknown) Health (units (unkno wn) date) Management unknown) (unknown) (no (unknown) (unknown) Heart disease (units ( unknown) date) unknown) (unknown) (no (unknown) (unknown) Heart racing, (units ( unknown) date) feeling angry. unknown) (unknown) (no (unknown) (unknown) Height 5 ft 2 in (units (unknown) date) unknown) (unknown) (no (unknown) (unknown) Hx of (units (unkno wn) date) appendectomy unknown) (2005) (unknown) (no (unknown) (unknown) Hx of knee (units (unk nown) date) surgery () unknown) (unknown) (no (unknown) (unknown) Hypothyroidism (units (unknown) date) (2008) unknown) (unknown) (no (unknown) (unknown) Intake Note: (units (u nknown) date) unknown) (unknown) (no (unknown) (unknown) Intake performed (units (unknown) date) by: Darlene Hauser unknown) (unknown) (no (unknown) (unknown) Intake (units (unkno wn) date) unknown) (unknown) (no (unknown) (unknown) Intake- Clincial (units (unknown) date) Staff unknown) (unknown) (no (unknown) (unknown) Joint pain (units (unk nown) date) (-1997) unknown) (unknown) (no (unknown) (unknown) Labs done today (units (unknown) date) 09/28/22 are unknown) pending. (unknown) (no (unknown) (unknown) Last Menstural (units (unknown) date) Cycle + Details unknown) (unknown) (no (unknown) (unknown) Loc: [facility] (units (unkno wn) date) unknown) (unknown) (no (unknown) (unknown) Medical History (units (unknown) date) (Updated 05/02/21 unknown) @ 11:08 by KALPANA White) (unknown) (no (unknown) (unknown) Migraines (2016) (units (unknown) date) unknown) (unknown) (no (unknown) (unknown) Mother (units (unkno wn) date) Hypothyroidism unknown) (unknown) (no (unknown) (unknown) Myalgia (units (unkno wn) date) unknown) (unknown) (no (unknown) (unknown) Other Menstrual (units (unknown) date) Period: Other unknown) (Mirena) (unknown) (no (unknown) (unknown) Oxygen Delivery (units (unknown) date) Method room air unknown) (unknown) (no (unknown) (unknown) PFSH (units (unkno wn) date) unknown) (unknown) (no (unknown) (unknown) PTSD (units (unkno wn) date) (post-traumatic unknown) stress disorder) (2007) (unknown) (no (unknown) (unknown) Patient: (units (unkno wn) date) Lillian Dorman unknown) MR#: [id number] (unknown) (no (unknown) (unknown) Position Sitting (units (unknown) date) unknown) (unknown) (no (unknown) (unknown) Proteinuria (units (un known) date) () unknown) (unknown) (no (unknown) (unknown) Pt had a PAP (units (u nknown) date) smear in Jun 2022 unknown) at [place]. (unknown) (no (unknown) (unknown) Pt has concerns (units (unknown) date) about fatigue, unknown) constant headache and reoccurring pain in abdomen (unknown) (no (unknown) (unknown) Pt was seen at (units (unknown) date) [place] unknown) hospital June 18- July 04 for of (unknown) (no (unknown) (unknown) Pulse 61 (units (unkno wn) date) unknown) (unknown) (no (unknown) (unknown) Pulse Oximetry (units (unknown) date) (%) 99 unknown) (unknown) (no (unknown) (unknown) Pulse Source (units (u nknown) date) Monitor unknown) (unknown) (no (unknown) (unknown) Reason For Visit (units (unknown) date) unknown) (unknown) (no (unknown) (unknown) Rheumatoid (units (unk nown) date) arthritis (2009) unknown) (unknown) (no (unknown) (unknown) Scoliosis (units (unkn own) date) (-1999) unknown) (unknown) (no (unknown) (unknown) Signed By: (units (unk nown) date) unknown) (unknown) (no (unknown) (unknown) Smoking Status: (units (unknown) date) Never smoker unknown) (unknown) (no (unknown) (unknown) Surgical History (units (unknown) date) (Reviewed unknown) 05/28/18 @ 21:36 by KALPANA Humphries) (unknown) (no (unknown) (unknown) This note may (units ( unknown) date) have been all or unknown) partially generated using voice recognition (unknown) (no (unknown) (unknown) Tobacco + (units (unkn own) date) Substance Use unknown) (unknown) (no (unknown) (unknown) Tobacco Status (units (unknown) date) unknown) (unknown) (no (unknown) (unknown) Visit Reasons: (units (unknown) date) [facility], hospital unknown) f/u: premature , abnormal labs (unknown) (no (unknown) (unknown) Vitals (units (unkno wn) date) unknown) (unknown) (no (unknown) (unknown) Weight 155 lb 4 (units (unknown) date) oz unknown) (unknown) (no (unknown) (unknown) alcohol intake: (units (unknown) date) never unknown) (unknown) (no (unknown) (unknown) and back. (units (unkn own) date) unknown) (unknown) (no (unknown) (unknown) baby boy. Was (units ( unknown) date) also seen on New unknown) Years [facility] for abdominal pain and abnormal labs. (unknown) (no (unknown) (unknown) have occurred. (units (unknown) date) If there are any unknown) questions, please contact the Medical Records (unknown) (no (unknown) (unknown) may occur. (units (unk nown) date) Occasional unknown) wrong-word or 'sound-alike' substitutions may have (unknown) (no (unknown) (unknown) metoclopramide (units (unknown) date) [From Reglan] unknown) Adverse Reaction (Intermediate, Verified 09/28/22 (unknown) (no (unknown) (unknown) occurred due to (units (unknown) date) the inherent unknown) limitations of voice recognition software. Please (unknown) (no (unknown) (unknown) premature at 29 (units (unknown) date) weeks, abnormal unknown) labs. (unknown) (no (unknown) (unknown) read the note (units ( unknown) date) carefully and unknown) recognize, using context, where these substitutions (unknown) (no (unknown) (unknown) software. (units (unkn own) date) Although every unknown) effort is made to edit content, nurse errors (unknown) (no (unknown) (unknown) substance use (units ( unknown) date) type: does not unknown) use Result panel 124 (unknown) (no (unknown) (unknown) (no value) (units (unk nown) date) unknown) (unknown) (no (unknown) (unknown) (1) Fatigue: (units (u nknown) date) unknown) (unknown) (no (unknown) (unknown) (2) PTSD (units (unkno wn) date) (post-traumatic unknown) stress disorder): (unknown) (no (unknown) (unknown) (3) Congenital (units (unknown) date) knee joint unknown) deformity: (unknown) (no (unknown) (unknown) 09/28/22 1124 (units ( unknown) date) unknown) (unknown) (no (unknown) (unknown) 09/28/22 (units (unkno wn) date) unknown) (unknown) (no (unknown) (unknown) 10:51) (units (unkno wn) date) unknown) (unknown) (no (unknown) (unknown) 10:52 (units (unkno wn) date) unknown) (unknown) (no (unknown) (unknown) 27 yo female (units (u nknown) date) presents today as unknown) a [facility], history of to baby boy, (unknown) (no (unknown) (unknown) [id number] (units (unkno wn) date) unknown) (unknown) (no (unknown) (unknown) Abdomen-soft (units (u nknown) date) nontender, no HSM, unknown) no palpable masses rebound or guarding (unknown) (no (unknown) (unknown) Abnormal Pap (units (u nknown) date) smear of cervix unknown) (2017) (unknown) (no (unknown) (unknown) Age/Sex: 27 / F (units (unknown) date) Date of Service: unknown) (unknown) (no (unknown) (unknown) Allergies (units (unkn own) date) unknown) (unknown) (no (unknown) (unknown) [place], [place] (units ( unknown) date) [address] unknown) (unknown) (no (unknown) (unknown) Assessment + Plan (units (unknown) date) unknown) (unknown) (no (unknown) (unknown) Assessment and (units (unknown) date) Plan: unknown) (unknown) (no (unknown) (unknown) Attending Dr: Froy (units (unknown) date) Ly Castellanos D.O. unknown) (unknown) (no (unknown) (unknown) BMI 28.3 (units (unkno wn) date) unknown) (unknown) (no (unknown) (unknown) BP 118/70 (units (unkn own) date) unknown) (unknown) (no (unknown) (unknown) Blood Pressure (units (unknown) date) Location Lt unknown) brachial (unknown) (no (unknown) (unknown) Brittle nails (units ( unknown) date) unknown) (unknown) (no (unknown) (unknown) Chest-heart (units (unk nown) date) regular rate and unknown) rhythm lungs clear to auscultation no wheezes rales (unknown) (no (unknown) (unknown) Chief Complaint (units (unknown) date) unknown) (unknown) (no (unknown) (unknown) Chief Complaint: (units (unknown) date) Establish care new unknown) provider (unknown) (no (unknown) (unknown) Congenital knee (units (unknown) date) joint deformity unknown) (unknown) (no (unknown) (unknown) : 1995 (units (unknown) date) Acct:[id number] unknown) (unknown) (no (unknown) (unknown) Depression (2010) (units (unknown) date) unknown) (unknown) (no (unknown) (unknown) Dept at (units (unkno wn) date) . unknown) (unknown) (no (unknown) (unknown) Details: (units (unkno wn) date) unknown) (unknown) (no (unknown) (unknown) Documented By: (units (unknown) date) Froy Castellanos unknown) D.O. 09/28/22 1023 (unknown) (no (unknown) (unknown) Exam Narrative (units (unknown) date) unknown) (unknown) (no (unknown) (unknown) Exam Narrative: (units (unknown) date) unknown) (unknown) (no (unknown) (unknown) Exam (units (unkno wn) date) unknown) (unknown) (no (unknown) (unknown) Family History (units (unknown) date) (Reviewed 09/28/22 unknown) @ 11:23 by Froy Castellanos DO) (unknown) (no (unknown) (unknown) Family Practice (units (unknown) date) Office Visit unknown) (unknown) (no (unknown) (unknown) Father Cancer (units ( unknown) date) unknown) (unknown) (no (unknown) (unknown) Fatigue type: (units ( unknown) date) chronic, unknown) unspecified Qualified Code(s): R53.82 - Chronic (unknown) (no (unknown) (unknown) Fatigue (units (unkno wn) date) unknown) (unknown) (no (unknown) (unknown) [facility]) (unknown) (no (unknown) (unknown) General physical (units (unknown) date) examination, unknown) physical examination (unknown) (no (unknown) (unknown) Grandfather (units (un known) date) No unknown) problems noted. (unknown) (no (unknown) (unknown) Grandmother (units (un known) date) Cancer unknown) (unknown) (no (unknown) (unknown) Grandmother (units (un known) date) Prediabetes unknown) (unknown) (no (unknown) (unknown) HPI (units (unkno wn) date) unknown) (unknown) (no (unknown) (unknown) Hair loss (units (unkn own) date) unknown) (unknown) (no (unknown) (unknown) Head-normocephali (units (unknown) date) c atraumatic, , unknown) (unknown) (no (unknown) (unknown) Health Management (units (unknown) date) reviewed with unknown) patient: Yes (unknown) (no (unknown) (unknown) Health Management (units (unknown) date) unknown) (unknown) (no (unknown) (unknown) Heart disease (units ( unknown) date) unknown) (unknown) (no (unknown) (unknown) Heart racing, (units ( unknown) date) feeling angry. unknown) (unknown) (no (unknown) (unknown) Height 5 ft 2 in (units (unknown) date) unknown) (unknown) (no (unknown) (unknown) Hx of (units (unkno wn) date) appendectomy unknown) (2005) (unknown) (no (unknown) (unknown) Hx of knee (units (unk nown) date) surgery () unknown) (unknown) (no (unknown) (unknown) Hypothyroidism (units (unknown) date) (2009) unknown) (unknown) (no (unknown) (unknown) Intake Note: (units (u nknown) date) unknown) (unknown) (no (unknown) (unknown) Intake performed (units (unknown) date) by: Darlene Hauser unknown) (unknown) (no (unknown) (unknown) Intake (units (unkno wn) date) unknown) (unknown) (no (unknown) (unknown) Intake- Clincial (units (unknown) date) Staff unknown) (unknown) (no (unknown) (unknown) Joint pain (units (unk nown) date) (-1997) unknown) (unknown) (no (unknown) (unknown) Labs done today (units (unknown) date) 09/28/22 are unknown) pending. (unknown) (no (unknown) (unknown) Lamictal which (units (unknown) date) she will continue unknown) (unknown) (no (unknown) (unknown) Last Menstural (units (unknown) date) Cycle + Details unknown) (unknown) (no (unknown) (unknown) Lastly she does (units (unknown) date) have congenital unknown) abnormalities to her knees bilaterally see (unknown) (no (unknown) (unknown) Loc: [facility] (units (unkno wn) date) unknown) (unknown) (no (unknown) (unknown) Medical History (units (unknown) date) (Reviewed 09/28/22 unknown) @ 11:23 by Froy Castellanos DO) (unknown) (no (unknown) (unknown) Medications (units (un known) date) unknown) (unknown) (no (unknown) (unknown) Migraines (2016) (units (unknown) date) unknown) (unknown) (no (unknown) (unknown) Mother (units (unkno wn) date) Hypothyroidism unknown) (unknown) (no (unknown) (unknown) Myalgia (units (unkno wn) date) unknown) (unknown) (no (unknown) (unknown) Neck-supple no (units (unknown) date) thyromegaly, JVD unknown) or lymphadenopathy (unknown) (no (unknown) (unknown) Other Menstrual (units (unknown) date) Period: Other unknown) (Mirena) (unknown) (no (unknown) (unknown) Otherwise she has (units (unknown) date) a history of PTSD unknown) which is being monitored by her therapist (unknown) (no (unknown) (unknown) Oxygen Delivery (units (unknown) date) Method room air unknown) (unknown) (no (unknown) (unknown) PFSH (units (unkno wn) date) unknown) (unknown) (no (unknown) (unknown) PTSD (units (unkno wn) date) (post-traumatic unknown) stress disorder) (2007) (unknown) (no (unknown) (unknown) Patient: (units (unkno wn) date) Lillian Dorman unknown) MR#: [id number] (unknown) (no (unknown) (unknown) Position Sitting (units (unknown) date) unknown) (unknown) (no (unknown) (unknown) Proteinuria (units (un known) date) (-2004) unknown) (unknown) (no (unknown) (unknown) Pt had a PAP (units (u nknown) date) smear in Jun 2022 unknown) at [place]. (unknown) (no (unknown) (unknown) Pt has concerns (units (unknown) date) about fatigue, unknown) constant headache and reoccurring pain in abdomen (unknown) (no (unknown) (unknown) Pt was seen at (units (unknown) date) [place] unknown) hospital June 18- July 04 for of (unknown) (no (unknown) (unknown) Pulse 61 (units (unkno wn) date) unknown) (unknown) (no (unknown) (unknown) Pulse Oximetry (units (unknown) date) (%) 99 unknown) (unknown) (no (unknown) (unknown) Pulse Source (units (u nknown) date) Monitor unknown) (unknown) (no (unknown) (unknown) Qualifiers: (units (un known) date) unknown) (unknown) (no (unknown) (unknown) Quiet appearing (units (unknown) date) young female adult unknown) with above complaints, contributed to history (unknown) (no (unknown) (unknown) ROS Narrative (units ( unknown) date) unknown) (unknown) (no (unknown) (unknown) ROS Narrative: (units (unknown) date) unknown) (unknown) (no (unknown) (unknown) ROS per HPI (units (un known) date) patient notes some unknown) intermittent mild headache but nutritionally (unknown) (no (unknown) (unknown) ROS (units (unkno wn) date) unknown) (unknown) (no (unknown) (unknown) Reason For Visit (units (unknown) date) unknown) (unknown) (no (unknown) (unknown) Rheumatoid (units (unk nown) date) arthritis (2009) unknown) (unknown) (no (unknown) (unknown) Scoliosis (-1999) (units (unknown) date) unknown) (unknown) (no (unknown) (unknown) Signed By: (units (unk nown) date) <Electronically unknown) signed by Richi SanonO.> (unknown) (no (unknown) (unknown) Signed (units (unkno wn) date) unknown) (unknown) (no (unknown) (unknown) Smoking Status: (units (unknown) date) Never smoker unknown) (unknown) (no (unknown) (unknown) Status: Acute (units ( unknown) date) unknown) (unknown) (no (unknown) (unknown) Surgical History (units (unknown) date) (Reviewed 09/28/22 unknown) @ 11:23 by Froy Castellanos DO) (unknown) (no (unknown) (unknown) The patient has a (units (unknown) date) congenital knee unknown) deformity bilaterally with expectations of (unknown) (no (unknown) (unknown) The patient is (units (unknown) date) now unknown) approximately 3 and half months and is still not (unknown) (no (unknown) (unknown) The patient's (units ( unknown) date) PTSD was not unknown) explored at today's visit she is engaged with a (unknown) (no (unknown) (unknown) This 27-year-old (units (unknown) date) female now unknown) approximately 3 and half months with (unknown) (no (unknown) (unknown) This note may (units ( unknown) date) have been all or unknown) partially generated using voice recognition (unknown) (no (unknown) (unknown) Tobacco + (units (unkn own) date) Substance Use unknown) (unknown) (no (unknown) (unknown) Tobacco Status (units (unknown) date) unknown) (unknown) (no (unknown) (unknown) Visit Reasons: (units (unknown) date) [facility], hospital f/u: unknown) premature , abnormal labs (unknown) (no (unknown) (unknown) Vital signs are (units (unknown) date) reported, charted unknown) and reviewed with patient (unknown) (no (unknown) (unknown) Vitals (units (unkno wn) date) unknown) (unknown) (no (unknown) (unknown) Weight 155 lb 4 (units (unknown) date) oz unknown) (unknown) (no (unknown) (unknown) Will continue to (units (unknown) date) use these is or unknown) prevail etiology for her fatigue as well as (unknown) (no (unknown) (unknown) a premature (units (un known) date) delivery at the unknown) end of May presents the clinic to establish (unknown) (no (unknown) (unknown) alcohol intake: (units (unknown) date) never unknown) (unknown) (no (unknown) (unknown) and back. (units (unkn own) date) unknown) (unknown) (no (unknown) (unknown) and exam (units (unkno wn) date) unknown) (unknown) (no (unknown) (unknown) and psychiatrist (units (unknown) date) currently stable unknown) on Lamictal and continues to have a stable (unknown) (no (unknown) (unknown) appears to be (units ( unknown) date) relatively well unknown) stay well hydrated is somewhat active but notes (unknown) (no (unknown) (unknown) baby boy. Was (units ( unknown) date) also seen on New unknown) Years [facility] for abdominal pain and abnormal labs. (unknown) (no (unknown) (unknown) be any (units (unkno wn) date) abnormalities such unknown) as anemia or renal dysfunction. Reassessment will be (unknown) (no (unknown) (unknown) bearing (units (unkno wn) date) activities as well unknown) as post activity swelling worsens will send her back (unknown) (no (unknown) (unknown) care new provider (units (unknown) date) and transition unknown) care. She we reviewed the events around her (unknown) (no (unknown) (unknown) deconditioning (units (unknown) date) because of her unknown) lack of activity during her child hospital stay. (unknown) (no (unknown) (unknown) distant future (units (unknown) date) unknown) (unknown) (no (unknown) (unknown) emotional (units (unkn own) date) well-being. unknown) (unknown) (no (unknown) (unknown) establish a (units (un known) date) normal sleeping unknown) pattern despite going every other night with her (unknown) (no (unknown) (unknown) fatigue, (units (unkno wn) date) unspecified unknown) (unknown) (no (unknown) (unknown) have occurred. 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 (units (unk nown) date) Occasional unknown) wrong-word or 'sound-alike' substitutions may have (unknown) (no (unknown) (unknown) metoclopramide (units (unknown) date) [From Reglan] unknown) Adverse Reaction (Intermediate, Verified 09/28/22 (unknown) (no (unknown) (unknown) occurred due to (units (unknown) date) the inherent unknown) limitations of voice recognition software. Please (unknown) (no (unknown) (unknown) or rhonchi, good (units (unknown) date) peripheral pulses unknown) (unknown) (no (unknown) (unknown) orthopedic (units (unk nown) date) surgery the past unknown) with expectations knee replacements in her not too (unknown) (no (unknown) (unknown) patient's fatigue (units (unknown) date) week her recent unknown) lab work was reviewed there does not appear to (unknown) (no (unknown) (unknown) premature at 29 (units (unknown) date) weeks, abnormal unknown) labs. (unknown) (no (unknown) (unknown) presumptive knee (units (unknown) date) replacement at unknown) some point in the not too distant future she (unknown) (no (unknown) (unknown) psychiatrist and (units (unknown) date) therapist appears unknown) to be doing quite well on her current dose of (unknown) (no (unknown) (unknown) read the note (units ( unknown) date) carefully and unknown) recognize, using context, where these substitutions (unknown) (no (unknown) (unknown) recent delivery (units (unknown) date) premature rupture unknown) membranes at 29 weeks her son is doing quite (unknown) (no (unknown) (unknown) sleep deprivation (units (unknown) date) unknown) (unknown) (no (unknown) (unknown) software. (units (unkn own) date) Although every unknown) effort is made to edit content, nurse errors (unknown) (no (unknown) (unknown) spouse. Review of (units (unknown) date) systems suggest unknown) that sleep deprivation is a major component (unknown) (no (unknown) (unknown) substance use (units ( unknown) date) type: does not use unknown) (unknown) (no (unknown) (unknown) to orthopedic (units ( unknown) date) surgeon for unknown) further evaluation assessment (unknown) (no (unknown) (unknown) undertaken (units (unkn own) date) approximately 2 unknown) months will recheck some lab work at that time expect (unknown) (no (unknown) (unknown) well now home (units ( unknown) date) after being unknown) delivered [facility] in [place]. (unknown) (no (unknown) (unknown) will continue to (units (unknown) date) monitor and if her unknown) pain and discomfort with prolonged weight Social History date description facility 2022-09-28 00:00 Never smoked tobacco ([facility]) [facility] Vital Signs date measurement value units 2022-09-28 00:00 BMI 28.3 kg/m2 2022-09-28 00:00 BP_diastolic 70 mmHg 2022-09-28 00:00 BP_systolic 118 mmHg 2022-09-28 00:00 heart_rate 61 /min 2022-09-28 00:00 height_metric 157.48 cm 2022-09-28 00:00 height_standard 62 in 2022-09-28 00:00 o2_saturation 99 % 2022-09-28 00:00 weight_metric 70.42 kg 2022-09-28 00:00 weight_standard 155.25 lb
--- NOTE | 2022-11-20 00:16 | XRAY Report ---
PROCEDURE: Chest 2 View X-Ray INDICATIONS: cough TECHNIQUE: 2 views of the chest were acquired. COMPARISON: Chest x-ray 12/12/2021. FINDINGS: Surgical changes and devices: None. Lungs and pleura: No pleural effusions or pneumothorax. Lungs are clear. Mediastinum: Mediastinal contours appear normal. Heart size is normal. Bones and chest wall: No suspicious bony lesions. Overlying soft tissues appear unremarkable. IMPRESSION: 1. No acute cardiopulmonary disease. Reviewed by: Fadi Miller MD on 11/20/2022 12:14 AM PDT Approved by: Fadi Miller MD on 11/20/2022 12:14 AM PDT Station ID: [id number]
--- NOTE | 2022-11-20 00:54 | ED Physician Documentation ---
PD HPI DYSPNEA - Stated complaint Stated Complaint: SOA - Chief complaint Chief Complaint: Resp - History obtained from History obtained from: Patient - Additional information Additional information: HPI from patient. Patient complains of cough, chest tightness, fatigue, rhinorrhea. She has been having fevers with Tmax of 101. Symptoms have been for the past 4 to 5 days. Denies chances of . Review of Systems Constitutional: reports: Fever, Myalgias, Fatigue Nose: reports: Rhinorrhea / runny nose Throat: denies: Sore throat Respiratory: reports: Cough. 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: Miscarriage(s) : Incontinence, Frequency HEENT: Chronic vision loss Psych: Post traumatic stress disorder Musculoskeletal: Osteoarthritis Derm: None - Past Surgical History Past Surgical History: Yes General: Appendectomy Ortho: Other - Present Medications Home Medications: Ambulatory Orders Medication Instructions Recorded Confirmed Amox/Clav 875/125 [Augmentin] 1 each PO Q12H #20 tablet 12/12/21 Azithromycin [Zithromax] 250 mg PO DAILY #6 tablet 12/12/21 Buspirone HCl 7.5 mg PO BID PRN 12/12/21 12/12/21 HYDROcod/ACETAM 5/325 [[place] 5/325] 1 - 2 tablet PO Q6H PRN #14 tablet 12/12/21 Lurasidone HCl [Latuda] 0 mg PO DAILY 12/12/21 12/12/21 lamoTRIgine [Lamictal] 150 mg PO DAILY 12/12/21 12/12/21 - Allergies Allergies/Adverse Reactions: Allergies Allergy/AdvReac Type Severity Reaction Status Date / Time metoclopramide HCl * Allergy Unknown Verified 11/19/22 21:40 [From Reglan] - Social History Does the pt smoke?: No Smoking Status: Never smoker Does the pt drink ETOH?: No Does the pt have substance abuse?: No - Immunizations Immunizations are current?: Yes - POLST Patient has POLST: No PD ED PE NORMAL - Vitals Vital signs reviewed: Yes - General General: Alert and oriented X 3, No acute distress, Well developed/nourished - Neck Neck: Supple, no meningeal sign - Respiratory Respiratory: No respiratory distress, Clear bilaterally Results - Vitals Vitals: Vital Signs - 24 hr 11/19/22 21:36 Temperature 37.2 C Heart Rate 92 Respiratory 18 Rate Blood Pressure 145/78 H O2 Saturation 97 Oxygen O2 Source Room air - Labs Labs: Laboratory Tests 11/20/22 01:10 Nasal Adenovirus (PCR) NOT DETECTED Nasal B. parapertussis DNA (PCR) NOT DETECTED Nasal Coronavir 229E PCR NOT DETECTED Nasal Coronavir HKU1 PCR NOT DETECTED Nasal Coronavir NL63 PCR NOT DETECTED Nasal Coronavir OC43 PCR NOT DETECTED Nasal Enterovir/Rhinovir PCR DETECTED A Nasal Influenza B PCR NOT DETECTED Nasal Influenza A PCR NOT DETECTED Nasal Parainfluen 1 PCR NOT DETECTED Nasal Parainfluen 2 PCR NOT DETECTED Nasal Parainfluen 3 PCR NOT DETECTED Nasal Parainfluen 4 PCR NOT DETECTED Nasal RSV (PCR) NOT DETECTED Nasal B.pertussis DNA PCR NOT DETECTED Nasal C.pneumoniae (PCR) NOT DETECTED Reg Human Metapneumo PCR NOT DETECTED Nasal M.pneumoniae (PCR) NOT DETECTED Nasal SARS-CoV-2 (PCR) NOT DETECTED - Rads (name of study) chest xray Relevant Findings:: Prelim report reviewed, EMP independent interpretation of test (I reviewed these images and my interpretation is no abnormality including no infiltrate), See rad report PD Medical Decision Making - ED course Complexity details: reviewed results, considered differential, d/w patient ED course: No abnormalities on chest x-ray. Symptoms are consistent with bronchitis (in the setting of normal chest x-ray). Respiratory PCR panel is sent to lab but patient is to be discharged and I told patient I will contact her in the morning with any positive result. I told patient that she will not be called if the result is negative for the viruses tested. At 8 AM, I attempted to contact the patient using the number listed on the [employer] chart. I made 3 attempts to contact patient but there was no pickup nor did it go to [employer]. The result of the respiratory PCR panel is positive for enterovirus/rhinovirus. Departure - Departure Disposition: 01 Home, Self Care Clinical Impression: Bronchitis Condition: Good Instructions: ED Upper Resp Infec No Abx Tx Comments: There were no abnormalities on tonight's chest x-ray; specifically, no evidence of an infectious process such as pneumonia. As we discussed, your symptoms are consistent with bronchitis, and bronchitis typically does not show on chest x- ray. Furthermore, bronchitis typically does not indicate the need for an antibiotic unlike pneumonia. A nasal swab was submitted to the lab to test for several different viruses including COVID and influenza. You will receive a phone call later this morning if any of the viruses test positive on this swab. However, if the swab is negative for the viruses tested, you will not receive a phone call. As we discussed, your symptoms are certainly suggestive of an infectious process; you should consider yourself contagious and take appropriate precautions. Discharge Date/Time: 11/20/22 01:16
[2022-11-20 02:12] LABS: B. PARAPERTUSSIS- RESP PCR PAN NOT DETECTED; B. PERTUSSIS- RESP PCR PANEL NOT DETECTED; C. PNEUMONIAE- RESP PCR PANEL NOT DETECTED; CORONAVIRUS 229E-RESP PCR NOT DETECTED; CORONAVIRUS HKU1-RESP PCR NOT DETECTED; CORONAVIRUS NL63-RESP PCR NOT DETECTED; CORONAVIRUS OC43-RESP PCR NOT DETECTED; HUMAN METAPNEUMOVIRUS NOT DETECTED; INFLUENZA A- RESP PCR PANEL NOT DETECTED; INFLUENZA B - RESP PCR PANEL NOT DETECTED; M. PNEUMONIAE- RESP PCR PANEL NOT DETECTED; PARAINFLUENZA VIRUS 1 NOT DETECTED; PARAINFLUENZA VIRUS 2 NOT DETECTED; PARAINFLUENZA VIRUS 3 NOT DETECTED; PARAINFLUENZA VIRUS 4 NOT DETECTED; RHINOVIRUS/ENTEROVIRUS DETECTED; RSV- RESP PCR PANEL NOT DETECTED; SARS-CoV-2 -RESP PCR PANEL NOT DETECTED
== END 2022-11-20 01:16 | disposition home or self-care (01) ==
LOC: ED 21:30
DX: J40 Bronchitis, not specified as acute or chronic (principal); E03.9 Hypothyroidism, unspecified; Z20.822 Contact with and (suspected) exposure to COVID-19; Z79.899 Other long term (current) drug therapy
CPT/HCPCS: 87633; 99283; 99284